=== PATIENT | female | born 1975 | race African-American/Black ===

== ENCOUNTER 2020-08-27 20:03 | Emergency (ER) | payer OTHER, SELFPAY ==
[2020-08-27 20:06] VITALS: BP 133/62; PULSE 89; RESP 22; TEMP 37.2; O2SAT 98
--- NOTE | 2020-08-27 21:22 | ED_ITS ---
HPI - Recheck/Abnormal Lab/Rx General Chief Complaint: Recheck/Abnormal Lab/Rx Stated Complaint: SEIZURE TYPE COVID SHOT THURSDAY Time Seen by Provider: 08/27/20 20:14 Source: patient Mode of arrival: Ambulatory Limitations: no limitations History of Present Illness HPI narrative: Patient is a 45-year-old female who is here for evaluation of a tremor. She states that the tremor has been there for the past several days if not week that is worsened over the past 24 hours. She is unsure as the exact cause of it. She states that it seems to be localized to her head where she feels like that her head is shaking. Earlier this year she did have a ASD closure. Afterwards she had routine labs by her primary doctor and it was found that potentially she had some thyroid issues. She has a follow-up later this week for this. Related Data Previous Rx's Medication Instructions Recorded atenolol 25 mg PO DAILY #30 tab 08/27/20 Allergies Allergy/AdvReac Type Severity Reaction Status Date / Time No Known Drug Allergies Allergy Verified 08/27/20 20:08 Review of Systems Constitutional Constitutional: Reports system reviewed and no additional complaints, except as documented Eyes Eyes: Reports system reviewed and no additional complaints, except as documented Cardiovascular Cardiovascular: Reports system reviewed and no additional complaints, except as documented Respiratory Respiratory: Reports system reviewed and no additional complaints, except as documented Gastrointestinal Gastrointestinal: Reports system reviewed and no additional complaints, except as documented Genitourinary Genitourinary: Reports system reviewed and no additional complaints, except as documented Integumentary/Breasts Skin/Breast: Reports system reviewed and no additional complaints, except as documented Neurologic Neurologic: Reports tremor(s) Psychiatric Psychiatric: Reports system reviewed and no additional complaints, except as d ocumented Hematologic/Lymphatic On Anticoagulants: No Allergic/Immunologic Allergic/Immunologic: Reports system reviewed and no additional complaints, except as documented Patient History Surgical History H/O atrial septal defect repair Social History lives independently: Yes Exam Initial Vital Signs Initial Vital Signs: Vital Signs Temperature 98.9 F 08/27/20 20:06 Pulse Rate 89 08/27/20 20:06 Respiratory Rate 22 08/27/20 20:06 Blood Pressure 133/62 08/27/20 20:06 Pulse Oximetry 98 08/27/20 20:06 Const General: cooperative and comfortable Limitations: mental status not altered HENMT Head: normal to inspection and normocephalic Ears: hearing grossly normal bilaterally Eyes General: appearance normal, both eyes and all related structures Eyelids: eyelids normal Conjunctivae: conjunctivae normal Other: No proptosis Resp Effort & Inspection: normal respiratory effort Auscultation: clear to auscultation bilaterally Cardio Rate: regular rate Rhythm: regular rhythm Skin Lesions: no lesions Rashes: no rashes Neuro General: patient alert, patient awake and moves all extremities Cognition: normal cognition Speech: speech normal Motor: muscle tone normal throughout Sensory Exam: no sensory deficits noted Other: Patient does not have a tremor with holding her arms out. She does not have a tremor with her legs. She does have a slight tremor that seems to wax and wane of her head. Extrem General: capillary refill normal Psych Appearance: grossly normal and well kempt Scores GCS Me[place] coma scale eye opening: Spontaneous Me[place] coma scale verbal response: Orientated [place] coma scale motor response: Obey commands [place] coma scale total score: 15 Course Orders Ordered: ED Orders 08/27/20 21:25 Complete Blood Count AUTO DIFF Stat Comprehensive Metabolic Panel Stat Free T3, Triiodothyronine Free Stat Lipase Stat T4 Total Thyroxine Stat Thyroid Stimulating Hormone Stat Discontinued Medications Atenolol (Atenolol 25 Mg Tablet) 25 mg PO NOW ONE Stop: 08/27/20 22:29 Last Admin: 08/27/20 22:45 Dose: 25 mg Documented by: MIROSLAVA Vital Signs Vital signs: Vital Signs - 8 hr 08/27/20 20:06 08/27/20 22:39 08/27/20 23:19 Temperature 98.9 F Pulse Rate 89 86 77 Respiratory Rate 22 14 14 Blood Pressure 133/62 115/58 L 115/56 L Pulse Oximetry 98 99 100 MDM - Recheck/Abnormal Lab/Rx Lab Data Attestation: I reviewed the patient's lab results. Result diagrams: 08/27/20 21:25 08/27/20 21:25 Labs: Lab Results 08/27/20 08/27/20 08/27/20 Range/Units 21:25 21:25 21:25 WBC 4.1 L (4.5-11.0) X10^3/uL RBC 4.70 (4.0-5.2) X10^6/uL Hgb 13.9 (12.0-16.0) g/dL Hct 40.9 (36-46) % MCV 86.9 (80-100) fL MCH 29.5 (26-34) PG MCHC 33.9 (30-36) % RDW 12.2 (11.6-14.8) % Plt Count 333 (150-400) X10^3/uL Neut % (Auto) 29.3 L (50-75) % Lymph % (Auto) 51.2 H (25-40) % [place] % (Auto) 15.3 H (3-14) % Eos % (Auto) 4.0 (2-4) % Baso % (Auto) 0.2 (0-2) % Neut # (Auto) 1200 L (1289-8971) /uL Lymph # (Auto) 2100 (9933-4902) /uL [place] # (Auto) 600 (0-900) /uL Eos # (Auto) 200 (0-450) /uL Baso # (Auto) 0 (0-100) /uL Sodium 137 (137-145) mmol/L Potassium 3.3 L (3.4-5.1) mmol/L Chloride 102 (98-107) mmol/L Carbon Dioxide 26 (22-32) mmol/L BUN 12 (7-17) mg/dL Creatinine 0.62 (0.52-1.04) mg/dL Estimated GFR > 60.0 (>60) mL/min BUN/Creatinine Ratio 19.4 (6-22) Glucose 98 (70-100) mg/dL Calcium 9.9 (8.4-10.2) mg/dL Total Bilirubin 0.2 (0.2-1.3) mg/dL AST 36 (14-36) IU/L ALT 31 (<35) IU/L Alkaline Phosphatase 113 (38-126) U/L Total Protein 8.7 H (6.3-8.2) g/dL Albumin 4.4 (3.5-5.0) g/dL Globulin 4.3 H (1.7-4.1) g/dL Albumin/Globulin Ratio 1.0 (1.0-2.8) Lipase 128 (23-300) U/L TSH < 0.015 L (0.47-4.68) uIU/mL Thyroxine (T4) 19.40 H (5.5-11.0) ug/dL Free T3 14.50 H (2.77-5.27) pg/mL MDM Narrative Medical decision making narrative: Patient's labs are consistent with hyperthyroidism. This is consistent with her prior labs per her report and she does have a follow-up later this week with her primary doctor regarding this. She does have a slight tremor that seems to wax and wane that seems to be isolated to her head. She has stated that she occasionally has episodes where her heart is beating fast and she also feels like her hair is falling out and this is fairly recently. Patient is not tachycardic nor hypertensive here. She has not had any weight loss. I have a higher suspicion that her symptoms today are caused by her hyperthyroidism. Will start the patient on atenolol. She has a follow-up later this week. I do not feel that the patient requires admitted to the hospital. Do not feel patient is in thyroid storm. She was given strict return precautions. She expressed understanding and agreement. Discharge Plan Departure Patient Disposition: Home Clinical Impression: Hyperthyroidism, Tremor Instructions: DI for Hyperthyroidism Activity Restrictions/Additional Instructions: I have a strong suspicion that your symptoms today are related to your hyperthyroidism (your thyroid working too much) recommend that you keep your appointment on Thursday. The medication you were given a prescription for today take it as directed. Return to the emergency department for any new or wor sening symptoms Prescriptions: New atenolol 25 mg tablet 25 mg PO DAILY Qty: 30 RF: 0
[2020-08-27 21:31] LABS: Add Manual Diff / Slide Review NO; Basophils Absolute Auto 0 /uL (0-100); Basophils Percent Auto 0.2 % (0-2); Eosinophils Absolute Auto 200 /uL (0-450); Hematocrit 40.9 % (36-46); Hemoglobin 13.9 g/dL (12.0-16.0); Lymphocytes Absolute Auto 2100 /uL (1100-4500); Lymphocytes Percent Auto 51.2 % (25-40); Mean Corpuscular HGB Conc 33.9 % (30-36); Mean Corpuscular Hemoglobin 29.5 PG (26-34); Mean Corpuscular Volume 86.9 fL (80-100); Monocytes Absolute Auto 600 /uL (0-900); Monocytes Percent Auto 15.3 % (3-14); Neutrophils Absolute Auto 1200 /uL (1500-7000); Neutrophils Percent Auto 29.3 % (50-75); Platelet Count 333 X10^3/uL (150-400); Red Cell Distribution Width 12.2 % (11.6-14.8); White Blood Cell Count 4.1 X10^3/uL (4.5-11.0)
[2020-08-27 21:49] LABS: Alanine Aminotransferase 31 IU/L (<35); Albumin 4.4 g/dL (3.5-5.0); Alkaline Phosphatase 113 U/L (38-126); Aspartate Aminotransferase 36 IU/L (14-36); BUN Creatinine Ratio 19.4 (6-22); Bilirubin Total 0.2 mg/dL (0.2-1.3); Blood Urea Nitrogen 12 mg/dL (7-17); Calcium 9.9 mg/dL (8.4-10.2); Carbon Dioxide 26 mmol/L (22-32); Chloride 102 mmol/L (98-107); Estimated Glomerular Filt Rate > 60.0 mL/min (>60); Globulin 4.3 g/dL (1.7-4.1); Glucose 98 mg/dL (70-100); HEMOLYSIS < 15 (0-50); Lipase 128 U/L (23-300); Potassium 3.3 mmol/L (3.4-5.1); Sodium 137 mmol/L (137-145); Total Protein 8.7 g/dL (6.3-8.2)
[2020-08-27 22:25] LABS: Thyroid Stimulating Hormone < 0.015 uIU/mL (0.47-4.68)
[2020-08-27 22:39] VITALS: BP 115/58; PULSE 86; RESP 14; O2SAT 99
[2020-08-27] MEDS: atenoloL 25 MG TABLET PO (22:45)
[2020-08-27 23:19] VITALS: BP 115/56; PULSE 77; RESP 14; O2SAT 100
== END 2020-08-27 23:21 | disposition home or self-care (01) ==
PROVIDERS: Emergency Provider Emergency Medicine
DX: E05.90 Thyrotoxicosis, unspecified without thyrotoxic crisis or storm (principal); R25.1 Tremor, unspecified
CPT/HCPCS: 36415; 80053; 83690; 84436; 84443; 84481; 85025; 99283

== ENCOUNTER 2021-06-18 17:11 | Emergency (ER) | payer OTHER, SELFPAY ==
[2021-06-18 17:35] VITALS: BP 135/60; PULSE 71; RESP 20; TEMP 36.4; O2SAT 98; BMI 27.9
[2021-06-18 18:56] LABS: Alanine Aminotransferase 17 IU/L (<35); Albumin 4.5 g/dL (3.5-5.0); Albumin Globulin Ratio 1.2 (1.0-2.8); Alkaline Phosphatase 97 U/L (38-126); Aspartate Aminotransferase 41 IU/L (14-36); BUN Creatinine Ratio 18.3 (6-22); Bilirubin Total 0.4 mg/dL (0.2-1.3); Blood Urea Nitrogen 15 mg/dL (7-17); Calcium 9.6 mg/dL (8.4-10.2); Carbon Dioxide 32 mmol/L (22-32); Chloride 101 mmol/L (98-107); Estimated Glomerular Filt Rate > 60.0 mL/min (>60); Globulin 3.9 g/dL (1.7-4.1); Glucose 105 mg/dL (70-100); HEMOLYSIS 36 (0-50); Potassium 3.6 mmol/L (3.4-5.1); Sodium 136 mmol/L (137-145); Total Protein 8.4 g/dL (6.3-8.2)
[2021-06-18 19:11] LABS: Add Manual Diff / Slide Review NO; Basophils Absolute Auto 100 /uL (0-100); Basophils Percent Auto 0.9 % (0-2); Eosinophils Absolute Auto 400 /uL (0-450); Hematocrit 39.1 % (36-46); Hemoglobin 13.2 g/dL (12.0-16.0); Lymphocytes Absolute Auto 3200 /uL (1100-4500); Lymphocytes Percent Auto 51.4 % (25-40); Mean Corpuscular HGB Conc 33.9 % (30-36); Mean Corpuscular Volume 91.4 fL (80-100); Monocytes Absolute Auto 500 /uL (0-900); Monocytes Percent Auto 7.7 % (3-14); Neutrophils Absolute Auto 2100 /uL (1500-7000); Platelet Count 369 X10^3/uL (150-400); Red Blood Cell Count 4.27 X10^6/uL (4.0-5.2); Red Cell Distribution Width 12.5 % (11.6-14.8); White Blood Cell Count 6.1 X10^3/uL (4.5-11.0)
[2021-06-18 19:27] LABS: Thyroid Stimulating Hormone < 0.015 uIU/mL (0.47-4.68)
[2021-06-18 20:23] LABS: Free T4, Direct Thyroxine 1.33 ng/dL (0.78-2.19)
[2021-06-18 20:37] VITALS: BP 136/78; PULSE 61; RESP 18; O2SAT 98
--- NOTE | 2021-06-18 20:46 | ED_ITS ---
HPI - Recheck/Abnormal Lab/Rx General Chief Complaint: Recheck/Abnormal Lab/Rx Stated Complaint: states md sent her for a thyroid test Time Seen by Provider: 06/18/21 19:30 Source: patient Mode of arrival: Ambulatory History of Present Illness HPI narrative: 46-year-old female nonsmoker with history of hypothyroid states that she has felt tremors off and on for a few days, but not currently. When present she feels like she is pulsing on the inside and states it lasts for a few minutes. She denies other symptoms such as dizziness, weakness or lightheadedness. She has no change in hot or cold tolerance. She denies any change in appetite nor nausea, vomiting or diarrhea. She denies any change in her medications, doses or pharmacy of choice. She states that she had reached out to her manager corporate responsibility to suggested she come to the emergency department for some lab work. Related Data Previous Rx's Medication Instructions Recorded atenolol 25 mg tablet 25 mg PO DAILY #30 tab 08/27/20 Allergies Allergy/AdvReac Type Severity Reaction Status Date / Time No Known Drug Allergies Allergy Verified 08/27/20 20:08 Review of Systems Review of Systems Narrative: GENERAL: See HPI HEENT: Denies sinus pain, ear pain, sore throat, difficulty swallowing, dizziness. RESPIRATORY: Denies dyspnea, cough, wheezing, hemoptysis, sputum. CARDIOVASCULAR: Denies chest pain, palpitations, orthopnea, edema, GASTROINTESTINAL: Denies nausea, vomiting, abdominal pain, diarrhea, constipation, melena. : Denies dysuria, frequency, incontinence, hematuria, urinary retention. MUSCULOSKELETAL: denies weakness, joint pain, or bony pain SKIN: Denies rash, skin lesions, or other NEUROLOGIC: See HP PSYCHIATRIC: No concerning psychosocial issues. 12 point review of systems is negative except for those stated above Patient History Surgical History H/O atrial septal defect repair Social History lives independently: Yes Smoking Status: Never smoker Smoking Status: Never smoker alcohol intake frequency: holidays/special occasions only Substance Use Type: does not use Exam Narrative Exam Narrative: GENERAL: [46] year old patient appears stated age. Well-developed patient, in mild distress. HEAD: Atraumatic. Normocephalic. EYES: Pupils equal round and reactive. Extraocular motions intact. No scleral icterus. No injection or drainage. ENT: Nose without bleeding, purulent drainage. Throat without erythema, tonsillar hypertrophy or exudate. Airway patent. NECK: Trachea midline. Non tender CARDIOVASCULAR: Regular rate and rhythm without murmurs, gallops, or rubs. RESPIRATORY: Clear to auscultation. Breath sounds equal bilaterally. No wheezes, rales, or rhonchi. GASTROINTESTINAL: Abdomen soft, non-tender, nondistended. EXTREMITIES: No edema or joint tenderness. BACK: Nontender without deformity or crepitance. No flank tenderness. NEURO: AOx3. SKIN: No rash or erythema of visible areas Initial Vital Signs Initial Vital Signs: Vital Signs Temperature 97.6 F 06/18/21 17:35 Pulse Rate 71 06/18/21 17:35 Respiratory Rate 20 06/18/21 17:35 Blood Pressure 135/60 06/18/21 17:35 Pulse Oximetry 98 06/18/21 17:35 Course Orders Ordered: ED Orders 06/18/21 18:11 Complete Blood Count AUTO DIFF Stat Comprehensive Metabolic Panel Stat Free T4, Direct Thyroxine Stat TSH [Thyroid Stimulating Hormone] Stat Vital Signs Vital signs: Vital Signs - 8 hr 06/18/21 20:37 06/18/21 21:00 06/18/21 21:01 Pulse Rate 61 66 61 Respiratory Rate 18 Blood Pressure 136/78 122/58 L Pulse Oximetry 98 100 99 06/18/21 21:30 Pulse Rate 59 L Respiratory Rate Blood Pressure 125/61 Pulse Oximetry 100 MDM - Recheck/Abnormal Lab/Rx Lab Data Result diagrams: 06/18/21 18:11 06/18/21 18:11 Labs: Lab Results 06/18/21 06/18/21 06/18/21 Range/Units 18:11 18:11 18:11 WBC 6.1 (4.5-11.0) X10^3/uL RBC 4.27 (4.0-5.2) X10^6/uL Hgb 13.2 (12.0-16.0) g/dL Hct 39.1 (36-46) % MCV 91.4 (80-100) fL MCH 31.0 (26-34) PG MCHC 33.9 (30-36) % RDW 12.5 (11.6-14.8) % Plt Count 369 (150-400) X10^3/uL Neut % (Auto) 34.0 L (50-75) % Lymph % (Auto) 51.4 H (25-40) % [place] % (Auto) 7.7 (3-14) % Eos % (Auto) 6.0 H (2-4) % Baso % (Auto) 0.9 (0-2) % Neut # (Auto) 2100 (3369-5280) /uL Lymph # (Auto) 3200 (9188-5430) /uL [place] # (Auto) 500 (0-900) /uL Eos # (Auto) 400 (0-450) /uL Baso # (Auto) 100 (0-100) /uL Sodium 136 L (137-145) mmol/L Potassium 3.6 (3.4-5.1) mmol/L Chloride 101 (98-107) mmol/L Carbon Dioxide 32 (22-32) mmol/L BUN 15 (7-17) mg/dL Creatinine 0.82 (0.52-1.04) mg/dL Estimated GFR > 60.0 (>60) mL/min BUN/Creatinine Ratio 18.3 (6-22) Glucose 105 H (70-100) mg/dL Calcium 9.6 (8.4-10.2) mg/dL Total Bilirubin 0.4 (0.2-1.3) mg/dL AST 41 H (14-36) IU/L ALT 17 (<35) IU/L Alkaline Phosphatase 97 (38-126) U/L Total Protein 8.4 H (6.3-8.2) g/dL Albumin 4.5 (3.5-5.0) g/dL Globulin 3.9 (1.7-4.1) g/dL Albumin/Globulin Ratio 1.2 (1.0-2.8) TSH < 0.015 L (0.47-4.68) uIU/mL Free T4 (0.78-2.19) ng/dL 06/18/21 Range/Units 18:11 WBC (4.5-11.0) X10^3/uL RBC (4.0-5.2) X10^6/uL Hgb (12.0-16.0) g/dL Hct (36-46) % MCV (80-100) fL MCH (26-34) PG MCHC (30-36) % RDW (11.6-14.8) % Plt Count (150-400) X10^3/uL Neut % (Auto) (50-75) % Lymph % (Auto) (25-40) % [place] % (Auto) (3-14) % Eos % (Auto) (2-4) % Baso % (Auto) (0-2) % Neut # (Auto) (3893-4337) /uL Lymph # (Auto) (6347-9465) /uL [place] # (Auto) (0-900) /uL Eos # (Auto) (0-450) /uL Baso # (Auto) (0-100) /uL Sodium (137-145) mmol/L Potassium (3.4-5.1) mmol/L Chloride (98-107) mmol/L Carbon Dioxide (22-32) mmol/L BUN (7-17) mg/dL Creatinine (0.52-1.04) mg/dL Estimated GFR (>60) mL/min BUN/Creatinine Ratio (6-22) Glucose (70-100) mg/dL Calcium (8.4-10.2) mg/dL Total Bilirubin (0.2-1.3) mg/dL AST (14-36) IU/L ALT (<35) IU/L Alkaline Phosphatase (38-126) U/L Total Protein (6.3-8.2) g/dL Albumin (3.5-5.0) g/dL Globulin (1.7-4.1) g/dL Albumin/Globulin Ratio (1.0-2.8) TSH (0.47-4.68) uIU/mL Free T4 1.33 (0.78-2.19) ng/dL MDM Narrative Medical decision making narrative: Patient with reassuring history and physical. Her labs are largely unremarkable except for low TSH in the setting of a normal free T4. She is currently asymptomatic and no evidence of any significant underlying diagnosis at this time. Return precautions given and questions answered to her apparent satisfaction Discharge Plan Departure Patient Disposition: Home Clinical Impression: Feared complaint without diagnosis Instructions: DI for Hypothyroidism Activity Restrictions/Additional Instructions: *You have been diagnosed with [episodic tremors with very reassuring physical exam and labs. There is no indication of significant abnormality in your circulating thyroid hormone. Also, as we discussed, your other labs are also very reassuring and there is no evidence of a significant electrolyte abnormality, kidney condition, infection, anemia or other diagnosis that would require a specific and immediate intervention *What to do: *Please continue to take your regular medications as directed. [ ] New medication prescriptions sent to your pharmacy: [ ] [ ] New medication written as a paper prescription [x ] No new medications given *Please follow up with your primary Client Analyst in 2-3 days, call for an appointment. Let them know you were seen in the Emergency Department and that we ask that you be seen in follow up. *Return to Emergency Department if you should have any new, worsening or concerning symptoms, such as [fever greater than 101 F, shaking chills, worsening pain, persistent vomiting or other bothersome symptoms] Prescriptions: No Action atenolol 25 mg tablet 25 mg PO DAILY Qty: 30 0RF
[2021-06-18 21:00] VITALS: PULSE 66; O2SAT 100
[2021-06-18 21:01] VITALS: BP 122/58; PULSE 61; O2SAT 99
[2021-06-18 21:30] VITALS: BP 125/61; PULSE 59; O2SAT 100
== END 2021-06-18 21:54 | disposition home or self-care (01) ==
PROVIDERS: Emergency Provider Emergency Medicine
DX: Z71.1 Person with feared health complaint in whom no diagnosis is made (principal)
CPT/HCPCS: 36415; 80053; 84439; 84443; 85025; 99283

== ENCOUNTER 2022-08-25 16:52 | Emergency (ER) | payer OTHER, SELFPAY ==
[2022-08-25 16:59] VITALS: BP 124/59; PULSE 80; RESP 18; TEMP 36.4; O2SAT 99; BMI 29.7
--- NOTE | 2022-08-25 17:07 | DI.RAD.S_ITS ---
PROCEDURE: XR CHEST 1V INDICATIONS: chest pain TECHNIQUE: One view of the chest was acquired. COMPARISON: None. FINDINGS: Surgical changes and devices: Small surgical clips are noted in epigastric region. Lungs and pleura: Lungs are clear. No pleural effusions or pneumothorax. Mediastinum: Mediastinal contours appear normal. Heart size is normal. Bones and chest wall: No suspicious bony lesions. Overlying soft tissues appear unremarkable. IMPRESSION: No acute cardiopulmonary pathology. Dictated by: Dwight Cloud M.D. on 08/25/2022 at 16:40 Approved by: Dwight Cloud M.D. on 08/25/2022 at 16:40
[2022-08-25 17:37] LABS: Add Manual Diff / Slide Review NO; Basophils Absolute Auto 0 /uL (0-100); Eosinophils Absolute Auto 200 /uL (0-450); Eosinophils Percent Auto 3.5 % (2-4); Hematocrit 35.7 % (36-46); Hemoglobin 12.4 g/dL (12.0-16.0); Lymphocytes Absolute Auto 2400 /uL (1100-4500); Lymphocytes Percent Auto 54.8 % (25-40); Mean Corpuscular HGB Conc 34.6 % (30-36); Mean Corpuscular Hemoglobin 30.4 PG (26-34); Mean Corpuscular Volume 87.9 fL (80-100); Monocytes Absolute Auto 300 /uL (0-900); Monocytes Percent Auto 7.4 % (3-14); Neutrophils Absolute Auto 1500 /uL (1500-7000); Neutrophils Percent Auto 33.3 % (50-75); Platelet Count 338 X10^3/uL (150-400); Red Blood Cell Count 4.06 X10^6/uL (4.0-5.2); Red Cell Distribution Width 12.9 % (11.6-14.8); White Blood Cell Count 4.4 X10^3/uL (4.5-11.0)
[2022-08-25 17:41] LABS: INR 1.1 (0.9-1.3); Prothrombin Time 12.5 SECONDS (10.1-12.7)
[2022-08-25 17:44] LABS: PTT Partial Thromboplastin Tim 31 SECONDS (26-36)
[2022-08-25 17:46] LABS: Alanine Aminotransferase 33 IU/L (<35); Albumin 4.2 g/dL (3.5-5.0); Albumin Globulin Ratio 1.2 (1.0-2.8); Alkaline Phosphatase 90 U/L (38-126); Aspartate Aminotransferase 32 IU/L (14-36); BUN Creatinine Ratio 13.6 (6-22); Bilirubin Total 0.4 mg/dL (0.2-1.3); Blood Urea Nitrogen 12 mg/dL (7-17); Calcium 8.3 mg/dL (8.4-10.2); Carbon Dioxide 28 mmol/L (22-32); Chloride 101 mmol/L (98-107); Creatine Kinase 163 U/L (30-135); Estimated Glomerular Filt Rate > 60 mL/min (>60); Globulin 3.6 g/dL (1.7-4.1); Glucose 132 mg/dL (70-100); HEMOLYSIS 18 (0-50); Lipase 184 U/L (23-300); Magnesium 2.3 mg/dL (1.6-2.3); Potassium 3.1 mmol/L (3.4-5.1); Sodium 137 mmol/L (137-145); Total Protein 7.8 g/dL (6.3-8.2)
[2022-08-25 17:56] LABS: Troponin I < 0.012 ng/mL (0.01-0.034)
[2022-08-25 18:01] LABS: CKMB % Relative Index 0.1 % (1.5-5.0); Creatine Kinase MB < 0.22 ng/mL (<2.37)
[2022-08-25 18:54] LABS: Procalcitonin 0.03 ng/mL (<0.5)
[2022-08-25 19:56] VITALS: PULSE 66; RESP 18; O2SAT 100
[2022-08-25 19:58] VITALS: BP 121/58; PULSE 64; RESP 15; O2SAT 98
--- NOTE | 2022-08-25 19:58 | ED.GENADULT ---
HPI - General Adult General Chief complaint: Shortness of Breath/Dyspnea Stated complaint: difficulty breathing Time Seen by Provider: 08/25/22 18:22 Source: patient Mode of arrival: Ambulatory History of Present Illness HPI narrative: 47-year-old female nonsmoker presents with shortness of breath and cough without sputum. She states that she is been feeling under the weather since Thursday, has had fever and chills as well as shortness of breath. She has had some nasal congestion, sore throat, laryngitis. She is had no fever or chills since or Thursday. She is had some mild nausea but denies any vomiting or diarrhea. She denies known exposure to other ill persons. She denies recent travel, history of cancer, prior blood clot. She denies any lower extremity pain, swelling or redness. She has been taking some antihistamines that seemed to help some Related Data Previous Rx's Medication Instructions Recorded atenolol 25 mg tablet 25 mg PO DAILY #30 tabs 08/27/20 benzonatate 200 mg capsule 200 mg PO BID PRN cough #20 caps 08/25/22 ondansetron 4 mg disintegrating 4 mg PO TID-QID PRN nausea and 08/25/22 tablet vomiting #10 tabs Allergies Allergy/AdvReac Type Severity Reaction Status Date / Time No Known Drug Allergies Allergy Verified 08/27/20 20:08 Review of Systems Review of Systems Narrative: GENERAL: See HPI HEENT: See HPI RESPIRATORY: See HPI CARDIOVASCULAR: Denies chest pain, palpitations, orthopnea, edema, GASTROINTESTINAL: See HPI : Denies dysuria, frequency, incontinence, hematuria, urinary retention. MUSCULOSKELETAL: denies weakness, joint pain, or bony pain SKIN: Denies rash, skin lesions, or other NEUROLOGIC: Denies weakness, headache, numbness, change in speech, confusion, seizures, incoordination. PSYCHIATRIC: No concerning psychosocial issues. 12 point review of systems is negative except for those stated above Patient History Surgical History H/O atrial septal defect repair Social History lives independently: Yes Smoking Status: Never smoker Smoking Status: Never smoker alcohol intake frequency: holidays/special occasions only Substance Use Type: does not use Exam Narrative Exam Narrative: GENERAL: [47] year old patient appears stated age. Well-developed patient, in mild distress. HEAD: Atraumatic. Normocephalic. EYES: Pupils equal round and reactive. Extraocular motions intact. No scleral icterus. No injection or drainage. ENT: Nose without bleeding, purulent drainage. Throat without erythema, tonsillar hypertrophy or exudate, no evidence of abscess. Clear postnasal drainage Airway patent. NECK: Trachea midline. Non tender CARDIOVASCULAR: Regular rate and rhythm without murmurs, gallops, or rubs. RESPIRATORY: Clear to auscultation. Breath sounds equal bilaterally. No wheezes, rales, or rhonchi. No bronchospastic cough, no increased work of breathing GASTROINTESTINAL: Abdomen soft, non-tender, nondistended. EXTREMITIES: No edema or joint tenderness. BACK: Nontender without deformity or crepitance. No flank tenderness. NEURO: AOx3. SKIN: No rash or erythema of visible areas Initial Vital Signs Initial Vital Signs: Vital Signs Temperature 97.6 F 08/25/22 16:59 Pulse Rate 80 08/25/22 16:59 Respiratory Rate 18 08/25/22 16:59 Blood Pressure 124/59 L 08/25/22 16:59 Pulse Oximetry 99 08/25/22 16:59 Oxygen Delivery Method Room Air 08/25/22 16:59 Scores PERC Score Age greater than or equal to 50 years: No Heart rate greater than or equal to 100 bpm: No Room Air O2 Sat less than 95%: No Unilateral leg swelling: No Recent trauma or surgery: No Hemoptysis: No Prior PE or DVT: No Hormone Use: No Total PERC Score: 0 Wells' Criteria for PE Clinical signs and symptoms of DVT: No PE is #1 Dx or equally likely: No Heart rate > 100: No Immobilization at least 3 days or surg in previous 4 weeks: No History of PE or DVT: No Hemoptysis: No Malignancy w/Treatment within 6 months or palliative: No Wells' PE Score total: 0 Course Orders Ordered: ED Orders 08/25/22 20:11 Respiratory Panel (Film Array) Stat Discontinued Medications Aspirin (Aspirin 81 Mg Chew Tab) 324 mg PO NOW ONE Stop: 08/25/22 17:08 Last Admin: 08/25/22 20:12 Dose: 324 mg Documented By: Vital Signs Vital signs: Vital Signs - 8 hr 08/25/22 20:32 08/25/22 19:56 08/25/22 19:58 Temperature 98 F Pulse Rate 74 66 64 Respiratory Rate 18 18 15 Blood Pressure 128/76 Pulse Oximetry 97 100 98 Oxygen Delivery Method Room Air 08/25/22 19:58 08/25/22 20:00 08/25/22 20:01 Temperature Pulse Rate 64 73 Respiratory Rate 24 43 H Blood Pressure 121/58 L Pulse Oximetry 98 97 Oxygen Delivery Method 08/25/22 20:01 Temperature Pulse Rate Respiratory Rate Blood Pressure 121/63 Pulse Oximetry Oxygen Delivery Method Medical Decision Making Lab Data 08/25/22 16:25 08/25/22 16:25 Labs: Lab Results 08/25/22 08/25/22 08/25/22 Range/Units 16:25 16:25 16:25 WBC 4.4 L (4.5-11.0) X10^3/uL RBC 4.06 (4.0-5.2) X10^6/uL Hgb 12.4 (12.0-16.0) g/dL Hct 35.7 L (36-46) % MCV 87.9 (80-100) fL MCH 30.4 (26-34) PG MCHC 34.6 (30-36) % RDW 12.9 (11.6-14.8) % Plt Count 338 (150-400) X10^3/uL Neut % (Auto) 33.3 L (50-75) % Lymph % (Auto) 54.8 H (25-40) % Gonzales % (Auto) 7.4 (3-14) % Eos % (Auto) 3.5 (2-4) % Baso % (Auto) 1.0 (0-2) % Neut # (Auto) 1500 (3277-7610) /uL Lymph # (Auto) 2400 (0841-9105) /uL Gonzales # (Auto) 300 (0-900) /uL Eos # (Auto) 200 (0-450) /uL Baso # (Auto) 0 (0-100) /uL PT 12.5 (10.1-12.7) SECONDS INR 1.1 (0.9-1.3) APTT 31 (26-36) SECONDS Sodium 137 (137-145) mmol/L Potassium 3.1 L (3.4-5.1) mmol/L Chloride 101 (98-107) mmol/L Carbon Dioxide 28 (22-32) mmol/L BUN 12 (7-17) mg/dL Creatinine 0.88 (0.52-1.04) mg/dL Estimated GFR > 60 (>60) mL/min BUN/Creatinine Ratio 13.6 (6-22) Glucose 132 H (70-100) mg/dL Calcium 8.3 L (8.4-10.2) mg/dL Magnesium 2.3 (1.6-2.3) mg/dL Total Bilirubin 0.4 (0.2-1.3) mg/dL AST 32 (14-36) IU/L ALT 33 (<35) IU/L Alkaline Phosphatase 90 (38-126) U/L Total Creatine Kinase 163 H (30-135) U/L CK-MB (CK-2) < 0.22 (<2.37) ng/mL CK-MB (CK-2) Rel Index 0.1 L (1.5-5.0) % Troponin I < 0.012 (0.01-0.034) ng/mL Total Protein 7.8 (6.3-8.2) g/dL Albumin 4.2 (3.5-5.0) g/dL Globulin 3.6 (1.7-4.1) g/dL Albumin/Globulin Ratio 1.2 (1.0-2.8) Lipase 184 (23-300) U/L Procalcitonin (<0.5) ng/mL Chlamy pneumoniae PCR (Not Detect) Adenovirus (PCR) (Not Detect) B. pertussis DNA (PCR) (Not Detecte) B.parapertussis DNA PCR (Not Detecte) Coronavirus OC43 (PCR) (Not Detect) Coronavirus HKU1 (PCR) (Not Detect) Coronavirus 229E (PCR) (Not Detect) SARS-CoV-2 (PCR) (Not Detecte) Coronavirus NL63 (PCR) (Not Detect) Human Metapneumovir PCR (Not Detect) Influenza Type A (PCR) (Not Detect) Influenza Type B (PCR) (Not Detect) M. pneumoniae (PCR) (Not Detect) Parainfluenza 1 (PCR) (Not Detect) Parainfluenza 2 (PCR) (Not Detect) Parainfluenza 3 (PCR) (Not Detect) Parainfluenza 4 (PCR) (Not Detect) RSV (PCR) (Not Detect) Entero/Rhino (PCR) (Not Detect) 08/25/22 08/25/22 Range/Units 16:25 20:11 WBC (4.5-11.0) X10^3/uL RBC (4.0-5.2) X10^6/uL Hgb (12.0-16.0) g/dL Hct (36-46) % MCV (80-100) fL MCH (26-34) PG MCHC (30-36) % RDW (11.6-14.8) % Plt Count (150-400) X10^3/uL Neut % (Auto) (50-75) % Lymph % (Auto) (25-40) % Gonzales % (Auto) (3-14) % Eos % (Auto) (2-4) % Baso % (Auto) (0-2) % Neut # (Auto) (0141-7205) /uL Lymph # (Auto) (6897-1056) /uL Gonzales # (Auto) (0-900) /uL Eos # (Auto) (0-450) /uL Baso # (Auto) (0-100) /uL PT (10.1-12.7) SECONDS INR (0.9-1.3) APTT (26-36) SECONDS Sodium (137-145) mmol/L Potassium (3.4-5.1) mmol/L Chloride (98-107) mmol/L Carbon Dioxide (22-32) mmol/L BUN (7-17) mg/dL Creatinine (0.52-1.04) mg/dL Estimated GFR (>60) mL/min BUN/Creatinine Ratio (6-22) Glucose (70-100) mg/dL Calcium (8.4-10.2) mg/dL Magnesium (1.6-2.3) mg/dL Total Bilirubin (0.2-1.3) mg/dL AST (14-36) IU/L ALT (<35) IU/L Alkaline Phosphatase (38-126) U/L Total Creatine Kinase (30-135) U/L CK-MB (CK-2) (<2.37) ng/mL CK-MB (CK-2) Rel Index (1.5-5.0) % Troponin I (0.01-0.034) ng/mL Total Protein (6.3-8.2) g/dL Albumin (3.5-5.0) g/dL Globulin (1.7-4.1) g/dL Albumin/Globulin Ratio (1.0-2.8) Lipase (23-300) U/L Procalcitonin 0.03 (<0.5) ng/mL Chlamy pneumoniae PCR Not detected (Not Detect) Adenovirus (PCR) Not detected (Not Detect) B. pertussis DNA (PCR) Not detected (Not Detecte) B.parapertussis DNA PCR Not detected (Not Detecte) Coronavirus OC43 (PCR) Not detected (Not Detect) Coronavirus HKU1 (PCR) Not detected (Not Detect) Coronavirus 229E (PCR) Not detected (Not Detect) SARS-CoV-2 (PCR) Detected H (Not Detecte) Coronavirus NL63 (PCR) Not detected (Not Detect) Human Metapneumovir PCR Not detected (Not Detect) Influenza Type A (PCR) Not detected (Not Detect) Influenza Type B (PCR) Not detected (Not Detect) M. pneumoniae (PCR) Not detected (Not Detect) Parainfluenza 1 (PCR) Not detected (Not Detect) Parainfluenza 2 (PCR) Not detected (Not Detect) Parainfluenza 3 (PCR) Not detected (Not Detect) Parainfluenza 4 (PCR) Not detected (Not Detect) RSV (PCR) Not detected (Not Detect) Entero/Rhino (PCR) Not detected (Not Detect) MDM Narrative Medical decision making narrative: CC: 47-year-old female nonsmoker with multiple upper respiratory complaints Complicating co-morbidities: Meniere's disease Data collected from: Patient Medical records reviewed: Prior notes reviewed in our EMR Differential considered, but not limited to: Viral upper respiratory infection, atypical pneumonia, pneumonia, pulmonary embolism versus other Exam documented above, pertinent findings include: Nasal drainage, clear postnasal drip, no increased work of breathing, no wheezing, rales or rhonchi, no increased work of breathing, no hypoxemia Lab Test results independently reviewed as above. Pertinent findings: No leukocytosis or left shift, procalcitonin negative. Respiratory panel notes COVID Independently reviewed EKG as above Imaging studies independently reviewed: No acute cardiopulmonary findings Scores Used: Wells, PERC - no need to order DDImer to pursue PE Treatments: ASA Re-evaluations: Patient without any significant respiratory distress Discussion: Patient with upper respiratory symptoms and subjective fever for the past 4-5 days has no signs of respiratory distress, no hypoxemia or use of accessory muscles. Chest x-ray is negative for any focal infiltrate, respiratory panel positive for COVID. She is not a candidate for Paxlovid. No indication for hospitalization. PE considered but thought unlikely given her Wells and PERC scores as noted above. Patient and I had extensive discussion about symptomatic treatment and indications for return including worsening trouble breathing, persistent vomiting or other bothersome symptoms Disposition: see below, along with detailed discharge instructions that have been reviewed with patient as well as indications for ED re-evaluation and additional outpatient follow up Discharge Plan Departure Patient Disposition: Home Clinical Impression: Upper respiratory virus, COVID-19 Instructions: DI for Viral Upper Respiratory Infection -- Adult Activity Restrictions/Additional Instructions: *You have been diagnosed with [various symptoms due to viral upper respiratory infection] *What to do: *Please consider the use of ijll-hud-[id number] antihistamines such as cetirizine syrup which can dry the secretions that are causing many of these symptoms. Two prescriptions were sent to [facility] for you * your history and physical exam are very reassuring and there is no indication that the symptoms are due to a bacterial infection, therefore there is no indication for antibiotics. *Please follow up with your primary care provider in 2-3 days, call for an appointment. Let them know you were seen in the Emergency Department and that we ask that you be seen in follow up. We will electronically transmit a record of today's note if your PCP is in our system *If you do not have a primary care provider please contact the [facility] Resource line at [phone]. They will ask some questions about your medical history and help get you set up with a doctor in the community. *Return to Emergency Department if you should have any new, worsening or concerning symptoms increased work of breathing with flaring of nostrils, using belly to breathe, persistent vomiting, or other bothersome symptoms *You have been diagnosed with [ COVID-19] *What to do: ?* per recommendations from the CDC and the [facility] Department of Health ?* stay home except to get medical care. ?Restrict activities outside your home, except for getting medical care. ?Do not go to work, school, or public areas. ?Avoid using public transportation, ride sharing, or taxis. ?* separate yourself from other people in your home. ?* call ahead before visiting your doctor ?* Wear a facemask ?* Cover your coughs and sneezes ?* Clean your hands often ?* Avoid sharing household items ?* Clean all high-touch services every day ?* Monitor your symptoms and seek prompt medical attention if your illness is worsening, particularly with difficulty in breathing. You may discontinue your isolation when: ?1. You have been fever-free for at least 24 hours without the use of fever reducing medication, AND ?2. Your symptoms are getting better, AND ?3. At least 5 days have passed since symptoms first appeared ?4. If you have fever, continue to stay home until fever resolves Individuals with laboratory confirmed COVID-19 who have not had any symptoms may discontinue home isolation when at least 5 days have passed since the date of their first COVID-19 diagnostic test and have had no subsequent illness You should notifiy any friends and family that have been in close contact *If up to date on COVID Vaccines, then they do not need to quarantine unless symptoms develop. Get tested on day 5 (or sooner if symptoms develop). Take precautions and watch for symptoms until day 10 *If NOT up to date on COVID Vaccines, then CDC recommends quarantine for at least 5 full days. Wear a well fitted mask at home if you must be around others. If they ?develop symptoms they should get tested. If they remain asymptomatic they should get tested on day 5. They should take precautions and monitor for symptoms until day 10. Prescriptions: New ondansetron 4 mg tablet,disintegrating 4 mg PO TID-QID PRN (Reason: nausea and vomiting) Qty: 10 0RF benzonatate 200 mg capsule 200 mg PO BID PRN (Reason: cough) Qty: 20 0RF No Action atenolol 25 mg tablet 25 mg PO DAILY Qty: 30 0RF Stand Alone Forms: Patient Portal/API
[2022-08-25 20:00] VITALS: PULSE 64; RESP 24; O2SAT 98
[2022-08-25 20:01] VITALS: BP 121/63; PULSE 73; RESP 43; O2SAT 97
[2022-08-25] MEDS: ASPIRIN 81 MG CHEW TAB 324 MG PO (20:12)
[2022-08-25 20:32] VITALS: BP 128/76; PULSE 74; RESP 18; TEMP 36.6; O2SAT 97
[2022-08-25 22:19] LABS: Adenovirus Not Detected (Not Detect); B. parapertussis Not Detected (Not Detecte); Bordetella pertussis Not Detected (Not Detecte); Chlamydophila pneumoniae Not Detected (Not Detect); Coronavirus 229E Not Detected (Not Detect); Coronavirus HKU1 Not Detected (Not Detect); Coronavirus NL 63 Not Detected (Not Detect); Coronavirus OC43 Not Detected (Not Detect); Human Metapneumovirus Not Detected (Not Detect); Human Rhinovirus/Enterovirus Not Detected (Not Detect); Influenza A Not Detected (Not Detect); Influenza B Not Detected (Not Detect); Mycoplasma pneumoniae Not Detected (Not Detect); Parainfluenza Virus 1 Not Detected (Not Detect); Parainfluenza Virus 2 Not Detected (Not Detect); Parainfluenza Virus 3 Not Detected (Not Detect); Parainfluenza Virus 4 Not Detected (Not Detect); Respiratory Syncytial Virus Not Detected (Not Detect); SARS- CoV-2 Detected (Not Detecte)
== END 2022-08-25 20:33 | disposition home or self-care (01) ==
PROVIDERS: Emergency Medicine; Emergency Provider Emergency Medicine
DX: U07.1 COVID-19 (principal); R07.9 Chest pain, unspecified
CPT/HCPCS: 36415; 71045; 80053; 82550; 82553; 83690; 83735; 84145; 84484; 85025; 85610; 85730; 87633; 93005; 99284

== ENCOUNTER 2023-05-29 17:57 | Emergency (ER) | payer OTHER, SELFPAY ==
[2023-05-29 18:08] VITALS: BP 125/58; PULSE 81; RESP 20; TEMP 36.6; O2SAT 99; BMI 30.1
[2023-05-29 19:00] LABS: Strep Grp A by PCR Rapid Negative (Negative)
[2023-05-29 19:41] LABS: Adenovirus Not Detected (Not Detect); B. parapertussis Not Detected (Not Detecte); Bordetella pertussis Not Detected (Not Detect); Chlamydophila pneumoniae Not Detected (Not Detect); Coronavirus 229E Not Detected (Not Detect); Coronavirus HKU1 Not Detected (Not Detect); Coronavirus NL 63 Not Detected (Not Detect); Coronavirus OC43 Not Detected (Not Detect); Human Metapneumovirus Not Detected (Not Detect); Human Rhinovirus/Enterovirus Not Detected (Not Detect); Influenza A Not Detected (Not Detect); Influenza B Not Detected (Not Detect); Mycoplasma pneumoniae Not Detected (Not Detect); Parainfluenza Virus 1 Not Detected (Not Detect); Parainfluenza Virus 2 Not Detected (Not Detect); Parainfluenza Virus 3 Not Detected (Not Detect); Parainfluenza Virus 4 Not Detected (Not Detect); Respiratory Syncytial Virus Detected (Not Detect); SARS- CoV-2 Not Detected (Not Detecte)
[2023-05-29 19:52] VITALS: BP 132/62; PULSE 81; O2SAT 99
[2023-05-29 20:00] VITALS: BP 121/59; PULSE 73; O2SAT 99
--- NOTE | 2023-05-29 20:24 | ED.GENADULT ---
HPI - General Adult General Chief complaint: Upper Respiratory Symptoms Stated complaint: coughing, sore throat hard to swallow, chest px Time Seen by Provider: 05/29/23 19:59 Source: patient Mode of arrival: Ambulatory History of Present Illness HPI narrative: 48-year-old woman with a history hypertension began noting upper respiratory symptoms consisting of slight cough, sore throat pleuritic type chest pain on the . Symptoms have worsened and now include mild headache and rhinorrhea. No significant dyspnea and no significant wheezing. She has not been having nausea, vomiting, diarrhea, palpitations, abdominal pain, dysuria. Related Data Previous Rx's Medication Instructions Recorded atenolol 25 mg tablet 25 mg PO DAILY #30 tabs 08/27/20 benzonatate 200 mg capsule 200 mg PO BID PRN cough #20 caps 08/25/22 ondansetron 4 mg disintegrating 4 mg PO TID-QID PRN nausea and 08/25/22 tablet vomiting #10 tabs Allergies Allergy/AdvReac Type Severity Reaction Status Date / Time No Known Drug Allergies Allergy Verified 05/29/23 18:13 Review of Systems Review of Systems Narrative: Pertinent positive and negative findings as per HPI Patient History Medical History (Updated 05/29/23 @ 20:32 by Adrienne Castro MD) Hypertension Surgical History H/O atrial septal defect repair Social History lives independently: Yes Smoking Status: Never smoker Smoking Status: Never smoker alcohol intake frequency: holidays/special occasions only Substance Use Type: does not use Exam Initial Vital Signs Initial Vital Signs: Vital Signs Temperature 97.8 F 05/29/23 18:08 Pulse Rate 81 05/29/23 18:08 Respiratory Rate 20 05/29/23 18:08 Blood Pressure 125/58 L 05/29/23 18:08 Pulse Oximetry 99 05/29/23 18:08 Oxygen Delivery Method Room Air 05/29/23 18:08 General: Healthy appearing, with nasal congestion, hoarse voice, mild cough but no acute respiratory distress. Able to cooperate completely with history and physical HEENT: Moist mucous membranes, normal sclera with reactive pupils, Respiratory: Lungs are clear to auscultation, no wheezing no rales no rhonchi. Full and symmetrical air movement, dry coughing is appreciated during exam Cardiac: Regular rate and rhythm no murmurs no bruits Abdomen: Soft, nontender, good bowel tones, no flank pain Skin: Warm and dry, no rashes Neurologic: Grossly neurologically intact with no obvious asymmetries or abnormalities Extremities: No trauma, well perfused Psych: Cooperative, appropriate insight and affect Course Orders Ordered: ED Orders 05/29/23 18:20 Respiratory Panel (Film Array) Stat Strep Grp A by PCR Rapid Stat 05/29/23 18:21 Throat Culture Stat Vital Signs Vital signs: Vital Signs - 8 hr 05/29/23 18:08 Temperature 97.8 F Pulse Rate 81 Respiratory Rate 20 Blood Pressure 125/58 L Pulse Oximetry 99 Oxygen Delivery Method Room Air Medical Decision Making Lab Data Labs: Lab Results 05/29/23 Range/Units 18:20 Chlamy pneumoniae PCR Not detected (Not Detect) Adenovirus (PCR) Not detected (Not Detect) B.parapertussis DNA PCR Not detected (Not Detecte) Coronavirus OC43 (PCR) Not detected (Not Detect) Coronavirus HKU1 (PCR) Not detected (Not Detect) Coronavirus 229E (PCR) Not detected (Not Detect) SARS-CoV-2 (PCR) Not detected (Not Detecte) Coronavirus NL63 (PCR) Not detected (Not Detect) Human Metapneumovir PCR Not detected (Not Detect) Influenza Type A (PCR) Not detected (Not Detect) Influenza Type B (PCR) Not detected (Not Detect) M. pneumoniae (PCR) Not detected (Not Detect) Parainfluenza 1 (PCR) Not detected (Not Detect) Parainfluenza 2 (PCR) Not detected (Not Detect) Parainfluenza 3 (PCR) Not detected (Not Detect) Parainfluenza 4 (PCR) Not detected (Not Detect) RSV (PCR) Detected H (Not Detect) Entero/Rhino (PCR) Not detected (Not Detect) Group A Strep (PCR) Negative (Negative) MDM Narrative Medical decision making narrative: CC: Upper respiratory complaints Complicating co-morbidities: Hypertension Data collected from: patient Differential considered: Upper respiratory syndrome, viral pneumonia, bacterial pneumonia Exam documented above, pertinent findings include: No significant rhonchi or wheezing on lung exam, no significant Lab Test results independently reviewed as above. Pertinent findings: Respiratory distress Respiratory panel is positive for RSV. CBC shows white count minimally low at 4.4 otherwise unremarkable Chemistries show mildly low potassium at 3.1 Troponin is undetectable Imaging studies independently reviewed: No acute cardiopulmonary disease Treatments: Kristin Reina Discussion: 48-year-old woman with RSV and clinical presentation consistent with that. There is no evidence of severe respiratory distress, bacterial pneumonia. Potassium was slightly low and she was given a potassium supplement prior to discharge. Renal function is otherwise unremarkable and she has not on medications that should be causing hypokalemia. We will refer any additional follow up to her primary care provider. Diagnosis, anticipated recovery and symptomatic treatment are all reviewed. Questions are answered and she is safe for discharge Discharge Plan Departure Patient Disposition: Home Clinical Impression: Respiratory syncytial virus (RSV) infection Instructions: DI for Respiratory Syncytial Virus -- Adults Activity Restrictions/Additional Instructions: Thank you for coming in today You have respiratory syncytial virus. Your symptoms started on 05/27 and you will likely continue to be infectious through at least 06/01. Home isolation is suggested For symptomatic relief, Kristin Reina can help suppress the cough. [id number] cough medication such as Robitussin DM or generic equivalent, Mucinex DM or generic equivalent along with plenty of fluids, Tylenol and ibuprofen for body aches can all be helpful. Rest is going to be important. If you find that you are getting worse or develop any new symptoms, please feel free to return to the emergency department for further evaluation. Prescriptions: No Action atenolol 25 mg tablet 25 mg PO DAILY Qty: 30 0RF ondansetron 4 mg tablet,disintegrating 4 mg PO TID-QID PRN (Reason: nausea and vomiting) Qty: 10 0RF benzonatate 200 mg capsule 200 mg PO BID PRN (Reason: cough) Qty: 20 0RF Referrals: Miscellaneous,Doctor, MD [Primary Care Provider] - Stand Alone Forms: Patient Portal/API
[2023-05-29] MEDS: BENZONATATE 100 MG CAPSULE PO (20:29)
[2023-05-29 20:30] VITALS: BP 126/56; PULSE 70; O2SAT 100
== END 2023-05-29 20:37 | disposition home or self-care (01) ==
PROVIDERS: Emergency Medicine; Emergency Provider Emergency Medicine
DX: B33.8 Other specified viral diseases (principal); E87.6 Hypokalemia; Z20.822 Contact with and (suspected) exposure to COVID-19
CPT/HCPCS: 87070; 87633; 87651; 99283

== ENCOUNTER 2023-08-23 17:11 | Emergency (ER) | payer OTHER, SELFPAY ==
[2023-08-23] VITALS (11 sets, daily range): BP systolic 119–176; BP diastolic 56–108; PULSE 64–85; RESP 14–18; TEMP 36.4; O2SAT 96–100; BMI 29.9
--- NOTE | 2023-08-23 17:29 | DI.CT.S_ITS ---
PROCEDURE: CT ABDOMEN PELVIS W CON INDICATIONS: bilateral lower abd pain TECHNIQUE: After the administration of intravenous contrast, axial sections acquired from the lung bases to the pubic symphysis. Coronal and sagittal reformats were performed. For radiation dose reduction, the following was used: automated exposure control, adjustment of mA and/or kV according to patient size. COMPARISON: None. FINDINGS: Image quality: Diagnostic Lower chest: Mild lower lung opacities, likely atelectasis. Atrial septal device Mildly patulous distal esophagus, possible small epiphrenic diverticulum, nonspecific CT appearance. Liver: Unremarkable Gallbladder and biliary system: Unremarkable, nondilated Pancreas: No ductal dilation Spleen: Nonenlarged Adrenals: No adrenal nodule Kidneys: No solid mass. No hydronephrosis. Vessels and lymph nodes: The main portal vein is patent. No abdominal aortic aneurysm. No pathologic lymph nodes by size criteria Bowel and peritoneum: Mildly distended stomach. No evidence of small bowel obstruction. Prominent fluid-filled loops of distal small bowel. The colon is under distended. The appendix is nondilated, terminating in the midline lower abdomen. Body wall: Unremarkable Pelvis: Complex appearance of the uterus, likely multiple fibroids and degenerating cystic components. Possible cyst in the right adnexa. The left ovary is not visualized. Bladder is unremarkable. Bones: No acute or suspicious osseous finding. There are degenerative changes. IMPRESSION: No evidence of small bowel obstruction. Mildly prominent fluid-filled loops of distal small bowel may represent enteritis. The appendix is nondilated. The stomach is mildly dilated. Complex appearance of the uterus, likely representing multiple fibroids, some which have cystic and degenerating components. Prominent right ovary, likely with cysts. Consider further ultrasound follow-up. MRI may be eventually necessary to fully characterize. Dictated by: Gilles Child M.D. on 08/23/2023 at 18:58 Approved by: Gilles Child M.D. on 08/23/2023 at 19:03
--- NOTE | 2023-08-23 17:30 | ED.GENADULT ---
HPI - General Adult <Sergio Hinds DO - Last Filed: 08/24/23 06:58> General Chief complaint: Abdominal Pain Stated complaint: Abd pain Time Seen by Provider: 08/23/23 17:24 Source: patient Mode of arrival: Ambulatory History of Present Illness HPI narrative: Patient is a 48-year-old female who is here for evaluation bilateral lower abdominal discomfort. States that it started this morning at about 0800 hours. It is now been consistent in his more in the suprapubic and left-sided lower abdominal. No change in bowel habits. No vaginal bleeding. She is still having regular menstrual cycles. No urinary symptoms. She has had her left ovary removed because of ovarian cysts. Is having some nausea. No fevers. She had similar symptoms a couple weeks ago that resolved on its own. Related Data Previous Rx's Medication Instructions Recorded atenolol 25 mg tablet 25 mg PO DAILY #30 tabs 08/27/20 benzonatate 200 mg capsule 200 mg PO BID PRN cough #20 caps 08/25/22 ondansetron 4 mg disintegrating 4 mg PO TID-QID PRN nausea and 08/25/22 tablet vomiting #10 tabs Allergies Allergy/AdvReac Type Severity Reaction Status Date / Time No Known Drug Allergies Allergy Verified 08/23/23 17:19 Review of Systems <DO Hanna Thayer Last Filed: 08/24/23 06:58> Review of Systems Narrative: See HPI Patient History <DO Hanna Thayer Last Filed: 08/24/23 06:58> Medical History Hypertension Surgical History H/O atrial septal defect repair Social History lives independently: Yes Smoking Status: Never smoker Smoking Status: Never smoker alcohol intake frequency: holidays/special occasions only Substance Use Type: does not use Exam <DO Hanna Thayer Last Filed: 08/24/23 06:58> Initial Vital Signs Initial Vital Signs: Vital Signs Temperature 97.6 F 08/23/23 17:13 Pulse Rate 82 08/23/23 17:13 Respiratory Rate 18 08/23/23 17:13 Blood Pressure 176/108 H 08/23/23 17:13 Pulse Oximetry 98 08/23/23 17:13 Oxygen Delivery Method Room Air 08/23/23 17:13 Const General: cooperative and comfortable Resp Effort & Inspection: normal respiratory effort Auscultation: clear to auscultation bilaterally Cardio Rate: regular rate Rhythm: regular rhythm GI Inspection: normal to inspection and non-distended Palpation: soft, No firm, No guarding and tender Back/Spine/Pelvis Back: No CVA tenderness Skin General: no rashes or lesions noted Neuro General: patient alert, patient awake and moves all extremities Extrem General: capillary refill normal <Tian Rivera MD - Last Filed: 08/25/23 12:40> Initial Vital Signs Initial Vital Signs: Vital Signs Temperature 97.6 F 08/23/23 17:13 Pulse Rate 82 08/23/23 17:13 Respiratory Rate 18 08/23/23 17:13 Blood Pressure 176/108 H 08/23/23 17:13 Pulse Oximetry 98 08/23/23 17:13 Oxygen Delivery Method Room Air 08/23/23 17:13 Course <Sergio Hinds DO - Last Filed: 08/24/23 06:58> Orders Ordered: Discontinued Medications Ketorolac Tromethamine (Ketorolac 30 Mg/Ml Vial) 15 mg IV NOW ONE Stop: 08/23/23 18:43 Last Admin: 08/23/23 18:45 Dose: 15 mg Documented By: KATIE Vital Signs Vital signs: Vital Signs - 8 hr 08/23/23 17:13 08/23/23 17:22 08/23/23 17:22 Temperature 97.6 F Pulse Rate 82 64 Respiratory Rate 18 Blood Pressure 176/108 H 131/68 Pulse Oximetry 98 99 Oxygen Delivery Method Room Air 08/23/23 17:30 08/23/23 17:46 08/23/23 17:46 Temperature Pulse Rate 85 81 Respiratory Rate Blood Pressure 132/56 L Pulse Oximetry 99 96 Oxygen Delivery Method 08/23/23 18:00 08/23/23 18:01 08/23/23 18:01 Temperature Pulse Rate 77 77 Respiratory Rate Blood Pressure 119/56 L Pulse Oximetry 99 98 Oxygen Delivery Method 08/23/23 18:30 08/23/23 19:00 08/23/23 19:30 Temperature Pulse Rate 79 74 79 Respiratory Rate 18 Blood Pressure Pulse Oximetry 99 100 98 Oxygen Delivery Method 08/23/23 20:12 Temperature Pulse Rate 70 Respiratory Rate Blood Pressure Pulse Oximetry 100 Oxygen Delivery Method <Tian Rivera MD - Last Filed: 08/25/23 12:40> Orders Ordered: Discontinued Medications Ketorolac Tromethamine (Ketorolac 30 Mg/Ml Vial) 15 mg IV NOW ONE Stop: 08/23/23 18:43 Last Admin: 08/23/23 18:45 Dose: 15 mg Documented By: KATIE Vital Signs Vital signs: Vital Signs - 8 hr 08/23/23 17:13 08/23/23 17:22 08/23/23 17:22 Temperature 97.6 F Pulse Rate 82 64 Respiratory Rate 18 Blood Pressure 176/108 H 131/68 Pulse Oximetry 98 99 Oxygen Delivery Method Room Air 08/23/23 17:30 08/23/23 17:46 08/23/23 17:46 Temperature Pulse Rate 85 81 Respiratory Rate Blood Pressure 132/56 L Pulse Oximetry 99 96 Oxygen Delivery Method 08/23/23 18:00 08/23/23 18:01 08/23/23 18:01 Temperature Pulse Rate 77 77 Respiratory Rate Blood Pressure 119/56 L Pulse Oximetry 99 98 Oxygen Delivery Method 08/23/23 18:30 08/23/23 19:00 08/23/23 19:30 Temperature Pulse Rate 79 74 79 Respiratory Rate 18 Blood Pressure Pulse Oximetry 99 100 98 Oxygen Delivery Method 08/23/23 20:12 Temperature Pulse Rate 70 Respiratory Rate Blood Pressure Pulse Oximetry 100 Oxygen Delivery Method Medical Decision Making <Sergio Hinds DO - Last Filed: 08/24/23 06:58> Lab Data Lab results reviewed: Yes I reviewed the patient's lab results. 08/23/23 17:26 08/23/23 17:26 Labs: Lab Results 08/23/23 Range/Units 17:26 WBC 7.6 (4.5-11.0) X10^3/uL RBC 4.11 (4.0-5.2) X10^6/uL Hgb 11.5 L (12.0-16.0) g/dL Hct 35.1 L (36-46) % MCV 85.3 (80-100) fL MCH 27.9 (26-34) PG MCHC 32.7 (30-36) % RDW 14.2 (11.6-14.8) % Plt Count 477 H (150-400) X10^3/uL Neut % (Auto) 45.8 L (50-75) % Lymph % (Auto) 40.9 H (25-40) % [place] % (Auto) 6.8 (3-14) % Eos % (Auto) 5.3 H (2-4) % Baso % (Auto) 1.2 (0-2) % Neut # (Auto) 3500 (4070-1577) /uL Lymph # (Auto) 3100 (3149-2765) /uL [place] # (Auto) 500 (0-900) /uL Eos # (Auto) 400 (0-450) /uL Baso # (Auto) 100 (0-100) /uL Sodium 138 (137-145) mmol/L Potassium 3.7 (3.4-5.1) mmol/L Chloride 104 (98-107) mmol/L Carbon Dioxide 27 (22-32) mmol/L BUN 12 (7-17) mg/dL Creatinine 1.01 (0.52-1.04) mg/dL Estimated GFR > 60 (>60) mL/min BUN/Creatinine Ratio 11.9 (6-22) Glucose 108 H (70-100) mg/dL Calcium 9.4 (8.4-10.2) mg/dL Total Bilirubin 0.3 (0.2-1.3) mg/dL AST 22 (14-36) IU/L ALT 14 (<35) IU/L Alkaline Phosphatase 115 (38-126) U/L Total Protein 8.8 H (6.3-8.2) g/dL Albumin 4.9 (3.5-5.0) g/dL Globulin 3.9 (1.7-4.1) g/dL Albumin/Globulin Ratio 1.3 (1.0-2.8) Lipase 187 (23-300) U/L Serum , Qual Negative (Negative) Urine Dip Bedside Urine Glucose Negative Bedside Urine Bilirubin - Negative Bedside Urine Ketone - Negative Urine Specific [place] 1.010 Bedside Urine Occult Blood - Negative Bedside Urine pH 6.0 Bedside Urine Protein - Negative Bedside Urine Urobilinogen - Negative Bedside Urine Nitrite - Negative Bedside Urine Leukocytes - Negative Esterase Point of care testing: Urine Dip Bedside Urine Glucose Negative Bedside Urine Bilirubin - Negative Bedside Urine Ketone - Negative Urine Specific [place] 1.010 Bedside Urine Occult Blood - Negative Bedside Urine pH 6.0 Bedside Urine Protein - Negative Bedside Urine Urobilinogen - Negative Bedside Urine Nitrite - Negative Bedside Urine Leukocytes - Negative Esterase MDM Narrative Medical decision making narrative: Patient has had several hours of lower abdominal pain. Labs were ordered. CT scan was ordered. Patient declined offer for nausea or pain medication. Care turned over to Dr. Rivera at change of shift to follow-up and disposition. <Tian Rivera MD - Last Filed: 08/25/23 12:40> Lab Data Labs: Lab Results 08/23/23 Range/Units 17:26 WBC 7.6 (4.5-11.0) X10^3/uL RBC 4.11 (4.0-5.2) X10^6/uL Hgb 11.5 L (12.0-16.0) g/dL Hct 35.1 L (36-46) % MCV 85.3 (80-100) fL MCH 27.9 (26-34) PG MCHC 32.7 (30-36) % RDW 14.2 (11.6-14.8) % Plt Count 477 H (150-400) X10^3/uL Neut % (Auto) 45.8 L (50-75) % Lymph % (Auto) 40.9 H (25-40) % [place] % (Auto) 6.8 (3-14) % Eos % (Auto) 5.3 H (2-4) % Baso % (Auto) 1.2 (0-2) % Neut # (Auto) 3500 (7300-8387) /uL Lymph # (Auto) 3100 (9975-0352) /uL [place] # (Auto) 500 (0-900) /uL Eos # (Auto) 400 (0-450) /uL Baso # (Auto) 100 (0-100) /uL Sodium 138 (137-145) mmol/L Potassium 3.7 (3.4-5.1) mmol/L Chloride 104 (98-107) mmol/L Carbon Dioxide 27 (22-32) mmol/L BUN 12 (7-17) mg/dL Creatinine 1.01 (0.52-1.04) mg/dL Estimated GFR > 60 (>60) mL/min BUN/Creatinine Ratio 11.9 (6-22) Glucose 108 H (70-100) mg/dL Calcium 9.4 (8.4-10.2) mg/dL Total Bilirubin 0.3 (0.2-1.3) mg/dL AST 22 (14-36) IU/L ALT 14 (<35) IU/L Alkaline Phosphatase 115 (38-126) U/L Total Protein 8.8 H (6.3-8.2) g/dL Albumin 4.9 (3.5-5.0) g/dL Globulin 3.9 (1.7-4.1) g/dL Albumin/Globulin Ratio 1.3 (1.0-2.8) Lipase 187 (23-300) U/L Serum , Qual Negative (Negative) Urine Dip Bedside Urine Glucose Negative Bedside Urine Bilirubin - Negative Bedside Urine Ketone - Negative Urine Specific [place] 1.010 Bedside Urine Occult Blood - Negative Bedside Urine pH 6.0 Bedside Urine Protein - Negative Bedside Urine Urobilinogen - Negative Bedside Urine Nitrite - Negative Bedside Urine Leukocytes - Negative Esterase Point of care testing: Urine Dip Bedside Urine Glucose Negative Bedside Urine Bilirubin - Negative Bedside Urine Ketone - Negative Urine Specific [place] 1.010 Bedside Urine Occult Blood - Negative Bedside Urine pH 6.0 Bedside Urine Protein - Negative Bedside Urine Urobilinogen - Negative Bedside Urine Nitrite - Negative Bedside Urine Leukocytes - Negative Esterase MDM Narrative Medical decision making narrative: Patient has had several hours of lower abdominal pain. Labs were ordered. CT scan was ordered. Patient declined offer for nausea or pain medication. Care turned over to Dr. Rivera at change of shift to follow-up and disposition. Miguel, 08/23/2023, 1814. Transfer of care. 48-year-old female with right-sided abdominal pain, then to [facility] through the day today, history of left ovarian cysts, screening labs unremarkable, serum hCG negative, CT abdomen and pelvis ordered, has been performed, results pending. On my exam patient has right lower quadrant tenderness and some left lower quadrant transabdominally. Abdomen nonrigid. Pain medications offered, declined. Await results CT abdomen, if negative could consider pelvic ultrasound imaging. Keep NPO for now. Assume care. CT abdomen and pelvis. Impressions: ?No evidence of small-bowel obstruction. Mildly prominent fluid-filled loops of distal small bowel may represent enteritis. The appendix is nondilated. The stomach is mildly dilated. Complex appearing of the uterus, likely representing multiple fibroids, some of which have cystic in September generating components. Prominent right ovary, likely with cysts. Consider further ultrasound follow up. MRI may be eventually necessary to fully characterize. ? Radiology report, Dr. Child We will obtain ultrasound pelvis for further delineation of anatomy above, possible pain related to degenerating uterine fibroids, and/or right ovarian cysts. 1999, verbal report information technology assistant. Pelvic ultrasound shows blood flow normal to right ovary that has small follicular cysts, no free fluid. There are 2 large uterine masses approximately 7 cm diameter each. Left ovary not visualized, history of oophorectomy noted. We will consult Gynecology regarding follow-up, possible degenerating fibroids as cause of discomfort 2030, case discussed with Gynecology Dr. North, can see patient in follow-up for elective hysterectomy surgical options. Patient agrees. She declines opiate pain medications, she will take naproxen [id number] which she has prior. Discharge home, follow up with Gynecology Critical Care Time <Tian Rivera MD - Last Filed: 08/25/23 12:40> Critical Care Time Critical Care Time: Yes Total Critical Care Time: 35 Attestation: The high probability of a clinically significant, sudden or life threatening deterioration of the [abdominopelvic, gynecologic] system(s) required my full and direct attention, intervention and personal management. The aggregate critical care time was [35] minutes. This time is in addition to time spent performing reported procedures but includes the following: [x] Data Review and interpretation [x] Patient assessment and monitoring of vital signs [x] Documentation [x] Medication orders and management Discharge Plan Departure Patient Disposition: Home Clinical Impression: Pelvic pain Fibroid, uterine Qualifiers: Uterine leiomyoma location: unspecified location Qualified Code(s): D25.9 - Leiomyoma of uterus, unspecified Activity Restrictions/Additional Instructions: Lower abdominal discomfort, history of remote left ovarian surgical removal due to cysts. Some discomfort right lower and midline and left lower abdominal quadrant on exam. No fever, unremarkable laboratory studies, test negative. CT scan abdomen and pelvis suspicious for some masses within the uterus, possible uterine fibroids, advising further anatomic evaluation with ultrasound. Pelvic ultrasound was also performed, showed 7 cm diameter uterine masses, suspicious for uterine fibroids. There were small follicular cysts on the right ovary, without fluid, no suggestion of recent rupture or involution. Good blood flow to the right ovary. Case discussed gynecology on-call Dr. North, she can see you in follow-up to discuss hysterectomy surgical options for this. Take naproxen as needed for discomfort. Your information was relayed by phone to Dr. North, contact their office if you have not been contacted next couple of days. Return earlier for this/nearest emergency department for any change worsening symptoms prior Prescriptions: No Action atenolol 25 mg tablet 25 mg PO DAILY Qty: 30 0RF ondansetron 4 mg tablet,disintegrating 4 mg PO TID-QID PRN (Reason: nausea and vomiting) Qty: 10 0RF benzonatate 200 mg capsule 200 mg PO BID PRN (Reason: cough) Qty: 20 0RF Referrals: Miscellaneous,Doctor, MD [Primary Care Provider] - Esthela North DO [Physician] - Stand Alone Forms: Patient Portal/API
[2023-08-23 17:34] LABS: Add Manual Diff / Slide Review NO; Basophils Absolute Auto 100 /uL (0-100); Basophils Percent Auto 1.2 % (0-2); Eosinophils Absolute Auto 400 /uL (0-450); Eosinophils Percent Auto 5.3 % (2-4); Hematocrit 35.1 % (36-46); Hemoglobin 11.5 g/dL (12.0-16.0); Lymphocytes Absolute Auto 3100 /uL (1100-4500); Lymphocytes Percent Auto 40.9 % (25-40); Mean Corpuscular HGB Conc 32.7 % (30-36); Mean Corpuscular Hemoglobin 27.9 PG (26-34); Mean Corpuscular Volume 85.3 fL (80-100); Monocytes Absolute Auto 500 /uL (0-900); Monocytes Percent Auto 6.8 % (3-14); Neutrophils Absolute Auto 3500 /uL (1500-7000); Neutrophils Percent Auto 45.8 % (50-75); Platelet Count 477 X10^3/uL (150-400); Red Blood Cell Count 4.11 X10^6/uL (4.0-5.2); Red Cell Distribution Width 14.2 % (11.6-14.8); White Blood Cell Count 7.6 X10^3/uL (4.5-11.0)
[2023-08-23 17:45] LABS: Alanine Aminotransferase 14 IU/L (<35); Albumin 4.9 g/dL (3.5-5.0); Albumin Globulin Ratio 1.3 (1.0-2.8); Alkaline Phosphatase 115 U/L (38-126); Aspartate Aminotransferase 22 IU/L (14-36); BUN Creatinine Ratio 11.9 (6-22); Bilirubin Total 0.3 mg/dL (0.2-1.3); Blood Urea Nitrogen 12 mg/dL (7-17); Calcium 9.4 mg/dL (8.4-10.2); Carbon Dioxide 27 mmol/L (22-32); Chloride 104 mmol/L (98-107); Estimated Glomerular Filt Rate > 60 mL/min (>60); Globulin 3.9 g/dL (1.7-4.1); Glucose 108 mg/dL (70-100); HEMOLYSIS < 15 (0-50); Lipase 187 U/L (23-300); Potassium 3.7 mmol/L (3.4-5.1); Sodium 138 mmol/L (137-145); Total Protein 8.8 g/dL (6.3-8.2)
[2023-08-23 18:05] LABS: Pregnancy Test Serum,Qual Negative (Negative)
[2023-08-23] MEDS: KETOROLAC 30 MG/ML VIAL 15 MG IV (18:45)
--- NOTE | 2023-08-23 19:26 | DI.US.S_ITS ---
PROCEDURE: US PELVIC COMPLETE INDICATIONS: PAIN TECHNIQUE: Real-time scanning was performed of the pelvic organs, with image documentation. Additional endovaginal scanning was necessary due to incomplete visualization of the adnexal and endometrial structures by transabdominal scanning. COMPARISON: [facility], CT, CT ABDOMEN PELVIS W CON, 08/23/2023, 18:09. FINDINGS: Uterus: Uterus is retroflexed and normal in size at 12.2 x 10.4 x 8.4 cm. The myometrium is heterogeneous. The endometrium is not well seen due to multiple fibroids. The endometrium on CT appears thin. Multiple uterine fibroids. For example: -Mid intramural fibroid measuring 7.1 x 6.7 x 5.5 cm. -Mid intramural fibroid measuring 7.1 x 5.8 x 5.7 cm Uterine contours are difficult to discern. (A 3rd fibroid is seen on CT anterior exophytic measuring approximately 8 cm). Ovaries: The right ovary measures 4 x 2.6 x 1.5 cm, with a calculated ovarian volume of 8 cc. The left ovary is surgically absent. Small right ovarian follicles. Largest measuring 1.3 cm. Other: No pathologic free abdominal or pelvic fluid. IMPRESSION: 1. No significant right ovarian cyst. The left ovary is surgically absent. 2. Endometrium is not well seen. 3. Multiple large uterine fibroids. We strive to produce accurate, complete, and clear reports of imaging services. To assist us in improving patient care, this report was composed using standard report templates and voice recognition software. Therefore, it may contain abnormal punctuation, insertions and/or omissions. Occasional wrong-word or sound-alike substitutions may occur. Though we review the report and make efforts to correct it, we do recommend that the report be read carefully in proper context to recognize any text inaccuracies. Dictated by: Kevin Bearden M.D. on 08/23/2023 at 20:34 Approved by: Kevin Bearden M.D. on 08/23/2023 at 20:40
== END 2023-08-23 21:04 | disposition home or self-care (01) ==
PROVIDERS: Emergency Medicine; Emergency Provider Emergency Medicine
DX: R10.2 Pelvic and perineal pain (principal); D25.9 Leiomyoma of uterus, unspecified; R11.0 Nausea
CPT/HCPCS: 36415; 74177; 76830; 76856; 80053; 81003; 83690; 84703; 85025; 93976; 96374; 99284; J1885; Q9967

== ENCOUNTER 2023-12-16 16:36 | Emergency (ER) | payer OTHER, SELFPAY ==
[2023-12-16] VITALS (20 sets, daily range): BP systolic 127–156; BP diastolic 60–82; PULSE 60–75; RESP 12–24; TEMP 36.6; O2SAT 98–100; BMI 28.5
[2023-12-16 17:11] LABS: Add Manual Diff / Slide Review NO; Basophils Absolute Auto 100 /uL (0-100); Eosinophils Absolute Auto 200 /uL (0-450); Eosinophils Percent Auto 2.6 % (2-4); Hematocrit 29.7 % (36-46); Hemoglobin 9.7 g/dL (12.0-16.0); Lymphocytes Absolute Auto 1700 /uL (1100-4500); Lymphocytes Percent Auto 25.2 % (25-40); Mean Corpuscular HGB Conc 32.8 % (30-36); Mean Corpuscular Hemoglobin 27.1 PG (26-34); Mean Corpuscular Volume 82.5 fL (80-100); Monocytes Absolute Auto 600 /uL (0-900); Monocytes Percent Auto 9.3 % (3-14); Neutrophils Absolute Auto 4200 /uL (1500-7000); Neutrophils Percent Auto 60.9 % (50-75); Platelet Count 364 X10^3/uL (150-400); Red Cell Distribution Width 15.6 % (11.6-14.8); White Blood Cell Count 6.8 X10^3/uL (4.5-11.0)
[2023-12-16 17:24] LABS: Alanine Aminotransferase 12 IU/L (<35); Albumin Globulin Ratio 1.1 (1.0-2.8); Alkaline Phosphatase 79 U/L (38-126); Aspartate Aminotransferase 24 IU/L (14-36); BUN Creatinine Ratio 7.2 (6-22); Bilirubin Total 0.5 mg/dL (0.2-1.3); Blood Urea Nitrogen 12 mg/dL (7-17); Calcium 8.4 mg/dL (8.4-10.2); Carbon Dioxide 27 mmol/L (22-32); Chloride 103 mmol/L (98-107); Estimated Glomerular Filt Rate 38 mL/min (>60); Globulin 3.6 g/dL (1.7-4.1); Glucose 95 mg/dL (70-100); HEMOLYSIS < 15 (0-50); Lipase 75 U/L (23-300); Sodium 137 mmol/L (137-145); Total Protein 7.6 g/dL (6.3-8.2)
--- NOTE | 2023-12-16 18:24 | DI.CT.S_ITS ---
PROCEDURE: CT ABDOMEN PELVIS WO CON INDICATIONS: LLQ/LOW BACK PAIN TECHNIQUE: Axial sections were acquired from the lung bases to the pubic symphysis. Coronal and sagittal reformats were performed. For radiation dose reduction, the following was used: automated exposure control, adjustment of mA and/or kV according to patient size. COMPARISON: [facility], CT, CT ABDOMEN PELVIS W CON, 08/23/2023, 18:09. FINDINGS: Image quality: Diagnostic. Peritoneum: There is no pneumoperitoneum. There is no ascites. Bones: There is no acute osseous abnormality. The visualized vertebral body height are preserved. Lower Chest: Atrial septal device in place. Hypodensity of the blood pool, which can be seen with anemia. Mild left atrial enlargement. Liver: The liver is within normal limits. Gallbladder: The gallbladder is within normal limits. Biliary Ducts: There is no intrahepatic or extrahepatic biliary ductal dilatation. Pancreas: The pancreas is within normal limits. Spleen: The spleen is within normal limits. Adrenal glands: No adrenal nodularity Kidneys: Bilateral fullness of the renal collecting systems without overt hydronephrosis, likely secondary to mass effect from the the pathology described below (please see reproductive organs section). Bladder: Decompressed. Reproductive organs: Interval enlargement of 19.0 x 9.7 x 14.5 cm uterus (8.7 x 9.1 x 17.2 centimeter on 08/23/2023) with heterogenous parenchyma (4/26; 5/51) and adjacent small volume ascites along the right paracolic gutter. Within the central portion of the uterus, re-identified is a 7.2 cm peripherally calcified lesion, likely a fibroid. Stomach: The stomach is within normal limits. Bowel: The bowel is within normal limits. There is no bowel obstruction. The appendix is within normal limits. Lymph Nodes: There is no retroperitoneal, mesenteric, or inguinal lymphadenopathy. Vascular: There is no aneurysmal dilatation of the abdominal aorta. Within the limits of a non-angiographic examination, the celiac, superior mesenteric, and inferior mesenteric arteries are opacified. There is no large filling defect within the main portal vein or superior mesenteric vein. IMPRESSION: 1. Limited examination in the absence of intravenous contrast. 2. Interval enlargement and degeneration of likely multifibroid 19.0 cm uterus, with mild mass effect on the renal collecting systems. Gynecological consultation recommended for further evaluation. Dictated by: Demetris Vaz M.D. on 12/16/2023 at 19:40 Approved by: Demetris Vaz M.D. on 12/16/2023 at 19:50
--- NOTE | 2023-12-16 18:26 | ED.ABDPAIN ---
HPI - Abdominal Pain <Shannan Hernández MD - Last Filed: 12/17/23 16:17> General Chief Complaint: Abdominal Pain Stated Complaint: abd pain, n/v Time Seen by Provider: 12/16/23 17:59 Source: patient Mode of arrival: Ambulatory History of Present Illness HPI narrative: 48-year-old female with history of fibroid uterus presents by private vehicle from home for 3 days of progressively worsening left-sided abdominal pain with nausea and vomiting. [id number] medications at home not improving pain. States that this is different from her usual fibroid pain. Denies unusual vaginal bleeding or discharge, denies complaints with urination, denies change in bowel habits. Related Data Home Medications Medication Instructions Recorded Confirmed naproxen 500 mg tablet 500 mg PO BID 09/08/23 09/08/23 triamterene 75 1 tab PO DAILY 09/08/23 12/16/23 mg-hydrochlorothiazide 50 mg tablet Allergies Allergy/AdvReac Type Severity Reaction Status Date / Time No Known Drug Allergies Allergy Verified 12/16/23 16:50 Patient History <Shannan Hernández MD - Last Filed: 12/17/23 16:17> Medical History Hearing decreased Vertigo (~2014) Tinnitus (~2014) Painful menstrual periods (~2022) Ovarian cyst (~2012) Heavy menstrual period (~2022) Atrial septal defect (~2018) Leiomyoma of uterus Meniere disease Graves disease (~2020) Hypertension Surgical History Anesthesia History of sinus surgery (~05/2015) History of left oophorectomy (~12/2012) H/O atrial septal defect repair (~04/2019) Family History Mother Hypertension Stroke Brother History of heart disease Hypertension Sister No problems noted. Grandmother Congestive heart failure Social History lives independently: Yes Smoking Status: Never smoker Smoking Status: Never smoker alcohol intake frequency: holidays/special occasions only Substance Use Type: does not use Exam <Shannan Hernández MD - Last Filed: 12/17/23 16:17> Initial Vital Signs Initial Vital Signs: Vital Signs Temperature 98 F 12/16/23 16:47 Pulse Rate 62 12/16/23 16:47 Respiratory Rate 16 12/16/23 16:47 Blood Pressure 142/67 H 12/16/23 16:47 Pulse Oximetry 99 12/16/23 16:47 Oxygen Delivery Method Room Air 12/16/23 16:47 Const: Awake, alert, uncomfortable, in pain, nontoxic appearing Cardiac: regular rate, regular rhythm RESP: unlabored, clear bilaterally, no wheezing GI: Soft, left lower quadrant tenderness to deep palpation without rebound or guarding MSK: Atraumatic, full range of motion, pulses equal Skin: Warm, Dry, intact, no rashes Neuro: AO x3, CN II-XII grossly intact, moves all extremities <Tian Rivera MD - Last Filed: 12/17/23 19:00> Initial Vital Signs Initial Vital Signs: Vital Signs Temperature 98 F 12/16/23 16:47 Pulse Rate 62 12/16/23 16:47 Respiratory Rate 16 12/16/23 16:47 Blood Pressure 142/67 H 12/16/23 16:47 Pulse Oximetry 99 12/16/23 16:47 Oxygen Delivery Method Room Air 12/16/23 16:47 Course <Shannan Hernández MD - Last Filed: 12/17/23 16:17> Orders Ordered: Discontinued Medications Hydromorphone HCl (Hydromorphone 1 Mg Inj) 1 mg IV NOW ONE Stop: 12/16/23 20:54 Last Admin: 12/16/23 21:05 Dose: Not Given Documented By: NIEVES Sodium Chloride (Normal Saline 0.9%) 1,000 mls @ 1,000 mls/hr IV BOLUS ONE Stop: 12/16/23 19:23 Last Infusion: 12/16/23 20:14 Dose: Infused Documented By: Admin: 12/16/23 19:07 Dose: 1,000 mls/hr Documented By: OSVALDO Morphine Sulfate (Morphine 4 Mg/Ml Inj) 4 mg IV NOW ONE Stop: 12/16/23 20:42 Last Admin: 12/16/23 20:47 Dose: 4 mg Documented By: OSVALDO Morphine Sulfate (Morphine 4 Mg/Ml Inj) 4 mg IV NOW ONE Stop: 12/16/23 23:38 Last Admin: 12/16/23 23:42 Dose: 4 mg Documented By: TIFF Morphine Sulfate (Morphine 4 Mg/Ml Inj) 4 mg IV NOW ONE Stop: 12/17/23 08:15 Last Admin: 12/17/23 08:24 Dose: 4 mg Documented By: ELI Ondansetron HCl (Ondansetron 4 Mg/2 Ml Inj) 4 mg IV NOW PRN PRN Reason: Nausea And Vomiting Last Admin: 12/16/23 23:42 Dose: 4 mg Documented By: TIFF Ondansetron HCl (Ondansetron 4 Mg Odt) 4 mg PO NOW PRN PRN Reason: Nausea And Vomiting Potassium Chloride (Potassium Chloride 20 Meq/15 Ml Udc) 40 meq PO NOW ONE Stop: 12/17/23 07:53 Last Admin: 12/17/23 08:24 Dose: 40 meq Documented By: ELI Vital Signs Vital signs: Vital Signs - 8 hr 12/17/23 08:30 12/17/23 09:00 Pulse Rate 72 87 Respiratory Rate 28 H 33 H <Tian Rivera MD - Last Filed: 12/17/23 19:00> Orders Ordered: Discontinued Medications Hydromorphone HCl (Hydromorphone 1 Mg Inj) 1 mg IV NOW ONE Stop: 12/16/23 20:54 Last Admin: 12/16/23 21:05 Dose: Not Given Documented By: NIEVES Sodium Chloride (Normal Saline 0.9%) 1,000 mls @ 1,000 mls/hr IV BOLUS ONE Stop: 12/16/23 19:23 Last Infusion: 12/16/23 20:14 Dose: Infused Documented By: Admin: 12/16/23 19:07 Dose: 1,000 mls/hr Documented By: OSVALDO Morphine Sulfate (Morphine 4 Mg/Ml Inj) 4 mg IV NOW ONE Stop: 12/16/23 20:42 Last Admin: 12/16/23 20:47 Dose: 4 mg Documented By: OSVALDO Morphine Sulfate (Morphine 4 Mg/Ml Inj) 4 mg IV NOW ONE Stop: 12/16/23 23:38 Last Admin: 12/16/23 23:42 Dose: 4 mg Documented By: TIFF Morphine Sulfate (Morphine 4 Mg/Ml Inj) 4 mg IV NOW ONE Stop: 12/17/23 08:15 Last Admin: 12/17/23 08:24 Dose: 4 mg Documented By: ELI Ondansetron HCl (Ondansetron 4 Mg/2 Ml Inj) 4 mg IV NOW PRN PRN Reason: Nausea And Vomiting Last Admin: 12/16/23 23:42 Dose: 4 mg Documented By: TIFF Ondansetron HCl (Ondansetron 4 Mg Odt) 4 mg PO NOW PRN PRN Reason: Nausea And Vomiting Potassium Chloride (Potassium Chloride 20 Meq/15 Ml Udc) 40 meq PO NOW ONE Stop: 12/17/23 07:53 Last Admin: 12/17/23 08:24 Dose: 40 meq Documented By: ELI Vital Signs Vital signs: Vital Signs - 8 hr 12/17/23 08:30 12/17/23 09:00 Pulse Rate 72 87 Respiratory Rate 28 H 33 H MDM - Abdominal Pain <Shannan Hernández MD - Last Filed: 12/17/23 16:17> Differential Diagnosis Differential diagnosis: Likely abdominal pain, calculus of kidney and diverticulitis Lab Data 12/16/23 17:00 12/16/23 17:00 Labs: Lab Results 12/16/23 Range/Units 17:00 WBC 6.8 (4.5-11.0) X10^3/uL RBC 3.60 L (4.0-5.2) X10^6/uL Hgb 9.7 L (12.0-16.0) g/dL Hct 29.7 L (36-46) % MCV 82.5 (80-100) fL MCH 27.1 (26-34) PG MCHC 32.8 (30-36) % RDW 15.6 H (11.6-14.8) % Plt Count 364 (150-400) X10^3/uL Neut % (Auto) 60.9 (50-75) % Lymph % (Auto) 25.2 (25-40) % [place] % (Auto) 9.3 (3-14) % Eos % (Auto) 2.6 (2-4) % Baso % (Auto) 2.0 (0-2) % Neut # (Auto) 4200 (0874-4121) /uL Lymph # (Auto) 1700 (1863-8608) /uL [place] # (Auto) 600 (0-900) /uL Eos # (Auto) 200 (0-450) /uL Baso # (Auto) 100 (0-100) /uL Sodium 137 (137-145) mmol/L Potassium 3.0 L (3.4-5.1) mmol/L Chloride 103 (98-107) mmol/L Carbon Dioxide 27 (22-32) mmol/L BUN 12 (7-17) mg/dL Creatinine 1.66 H (0.52-1.04) mg/dL Estimated GFR 38 L (>60) mL/min BUN/Creatinine Ratio 7.2 (6-22) Glucose 95 (70-100) mg/dL Calcium 8.4 (8.4-10.2) mg/dL Total Bilirubin 0.5 (0.2-1.3) mg/dL AST 24 (14-36) IU/L ALT 12 (<35) IU/L Alkaline Phosphatase 79 (38-126) U/L Total Protein 7.6 (6.3-8.2) g/dL Albumin 4.0 (3.5-5.0) g/dL Globulin 3.6 (1.7-4.1) g/dL Albumin/Globulin Ratio 1.1 (1.0-2.8) Lipase 75 (23-300) U/L Point of care testing: Point of Care Testing Test Results Negative Urine Dip Bedside Urine Glucose Negative Bedside Urine Bilirubin - Negative Bedside Urine Ketone - Negative Urine Specific [place] 1.015 Bedside Urine Occult Blood - Negative Bedside Urine pH 6.0 Bedside Urine Protein - Negative Bedside Urine Urobilinogen - Negative Bedside Urine Nitrite - Negative Bedside Urine Leukocytes - Negative Esterase Imaging Data CT scan - abdomen/pelvis: Radiologist's Impression: PROCEDURE: CT ABDOMEN PELVIS WO CON INDICATIONS: LLQ/LOW BACK PAIN TECHNIQUE: Axial sections were acquired from the lung bases to the pubic symphysis. Coronal and sagittal reformats were performed. For radiation dose reduction, the following was used: automated exposure control, adjustment of mA and/or kV according to patient size. COMPARISON: [facility], CT, CT ABDOMEN PELVIS W CON, 08/23/2023, 18:09. FINDINGS: Image quality: Diagnostic. Peritoneum: There is no pneumoperitoneum. There is no ascites. Bones: There is no acute osseous abnormality. The visualized vertebral body height are preserved. Lower Chest: Atrial septal device in place. Hypodensity of the blood pool, which can be seen with anemia. Mild left atrial enlargement. Liver: The liver is within normal limits. Gallbladder: The gallbladder is within normal limits. Biliary Ducts: There is no intrahepatic or extrahepatic biliary ductal dilatation. Pancreas: The pancreas is within normal limits. Spleen: The spleen is within normal limits. Adrenal glands: No adrenal nodularity Kidneys: Bilateral fullness of the renal collecting systems without overt hydronephrosis, likely secondary to mass effect from the the pathology described below (please see reproductive organs section). Bladder: Decompressed. Reproductive organs: Interval enlargement of 19.0 x 9.7 x 14.5 cm uterus (8.7 x 9.1 x 17.2 centimeter on 08/23/2023) with heterogenous parenchyma (/; ) and adjacent small volume ascites along the right paracolic gutter. Within the central portion of the uterus, re-identified is a 7.2 cm peripherally calcified lesion, likely a fibroid. Stomach: The stomach is within normal limits. Bowel: The bowel is within normal limits. There is no bowel obstruction. The appendix is within normal limits. Lymph Nodes: There is no retroperitoneal, mesenteric, or inguinal lymphadenopathy. Vascular: There is no aneurysmal dilatation of the abdominal aorta. Within the limits of a non-angiographic examination, the celiac, superior mesenteric, and inferior mesenteric arteries are opacified. There is no large filling defect within the main portal vein or superior mesenteric vein. IMPRESSION: 1. Limited examination in the absence of intravenous contrast. 2. Interval enlargement and degeneration of likely multifibroid 19.0 cm uterus, with mild mass effect on the renal collecting systems. Gynecological consultation recommended for further evaluation. Dictated by: Demetris Vaz M.D. on 12/16/2023 at 19:40 Approved by: Demetris Vaz M.D. on 12/16/2023 at 19:50 MDM Narrative Medical decision making narrative: Left-sided abdominal pain with nausea and vomiting. Abdomen soft, no peritoneal signs, but patient was markedly tender in the left quadrant. Medications ordered for pain, we will order laboratory work and CT imaging. Laboratory work shows new RAHEL. Creatinine in August was 1.01 with GFR greater than 60, creatinine today 1.66 with GFR 38. WBC count 6.8, hemoglobin 9.7, platelets 364, normal electrolytes. CT of the abdomen and pelvis without contrast shows significant change in size of uterus with new compression on renal collecting systems. This is likely the source of new RAHEL. Case discussed with Dr. Haynes of OBGYN, who personally evaluated the patient and images. Recommended transfer to tertiary center with OBGYN/oncology services due to concern for underlying malignancy. 0700 - Care of patient signed out to Dr. Rivera at this time. Still pending available bed. 12/17/2023, 7:00 a.m., Miguel. Sign-out from Dr. Hernández. Awaiting transfer to [facility] for Gyne Onc and Urology follow up care. 48-year-old female with history of known fibroids, increasing left-sided abdominal pain, nausea and vomiting, CT today showed uterine mass that was increased significantly in size since imaging study August this year, case discussed with Dr. Patterson OB Gynecology who recommended transfer, RAHEL, decreased GFR, some mass effect in the left ureter noted as well, we will need Gyne Onc and neurology consultations. Patient has been accepted at [facility], awaiting bed assignment. Assumed interim care. Potassium 3.0 serum noted, no repletion orders located, we will give p.o. potassium chloride 40 mEq for now. Awaiting transfer 804, bed assigned now at [facility], we will arrange ground transportation BLS ambulance <Tian Rivera MD - Last Filed: 12/17/23 19:00> Lab Data Attestation: I reviewed the patient's lab results. Labs: Lab Results 12/16/23 Range/Units 17:00 WBC 6.8 (4.5-11.0) X10^3/uL RBC 3.60 L (4.0-5.2) X10^6/uL Hgb 9.7 L (12.0-16.0) g/dL Hct 29.7 L (36-46) % MCV 82.5 (80-100) fL MCH 27.1 (26-34) PG MCHC 32.8 (30-36) % RDW 15.6 H (11.6-14.8) % Plt Count 364 (150-400) X10^3/uL Neut % (Auto) 60.9 (50-75) % Lymph % (Auto) 25.2 (25-40) % [place] % (Auto) 9.3 (3-14) % Eos % (Auto) 2.6 (2-4) % Baso % (Auto) 2.0 (0-2) % Neut # (Auto) 4200 (0109-3082) /uL Lymph # (Auto) 1700 (7247-5895) /uL [place] # (Auto) 600 (0-900) /uL Eos # (Auto) 200 (0-450) /uL Baso # (Auto) 100 (0-100) /uL Sodium 137 (137-145) mmol/L Potassium 3.0 L (3.4-5.1) mmol/L Chloride 103 (98-107) mmol/L Carbon Dioxide 27 (22-32) mmol/L BUN 12 (7-17) mg/dL Creatinine 1.66 H (0.52-1.04) mg/dL Estimated GFR 38 L (>60) mL/min BUN/Creatinine Ratio 7.2 (6-22) Glucose 95 (70-100) mg/dL Calcium 8.4 (8.4-10.2) mg/dL Total Bilirubin 0.5 (0.2-1.3) mg/dL AST 24 (14-36) IU/L ALT 12 (<35) IU/L Alkaline Phosphatase 79 (38-126) U/L Total Protein 7.6 (6.3-8.2) g/dL Albumin 4.0 (3.5-5.0) g/dL Globulin 3.6 (1.7-4.1) g/dL Albumin/Globulin Ratio 1.1 (1.0-2.8) Lipase 75 (23-300) U/L Point of care testing: Point of Care Testing Test Results Negative Urine Dip Bedside Urine Glucose Negative Bedside Urine Bilirubin - Negative Bedside Urine Ketone - Negative Urine Specific [place] 1.015 Bedside Urine Occult Blood - Negative Bedside Urine pH 6.0 Bedside Urine Protein - Negative Bedside Urine Urobilinogen - Negative Bedside Urine Nitrite - Negative Bedside Urine Leukocytes - Negative Esterase MDM Narrative Medical decision making narrative: Left-sided abdominal pain with nausea and vomiting. Abdomen soft, no peritoneal signs, but patient was markedly tender in the left quadrant. Medications ordered for pain, we will order laboratory work and CT imaging. Laboratory work shows new RAHEL. Creatinine in August was 1.01 with GFR greater than 60, creatinine today 1.66 with GFR 38. WBC count 6.8, hemoglobin 9.7, platelets 364, normal electrolytes. CT of the abdomen and pelvis without contrast shows significant change in size of uterus with new compression on renal collecting systems. This is likely the source of new RAHEL. Case discussed with Dr. Haynes of OBGYN, who personally evaluated the patient and images. Recommended transfer to tertiary center with OBGYN/oncology services due to concern for underlying malignancy. 12/17/2023, 7:00 a.m.Miguel. Sign-out from Dr. Hernández. Awaiting transfer to [facility] for Gyne Onc and Urology follow up care. 48-year-old female with history of known fibroids, increasing left-sided abdominal pain, nausea and vomiting, CT today showed uterine mass that was increased significantly in size since imaging study August this year, case discussed with Dr. Patterson OB Gynecology who recommended transfer, RAHEL, decreased GFR, some mass effect in the left ureter noted as well, we will need Gyne Onc and neurology consultations. Patient has been accepted at [facility], awaiting bed assignment. Assumed interim care. Potassium 3.0 serum noted, no repletion orders located, we will give p.o. potassium chloride 40 mEq for now. Awaiting transfer 804, bed assigned now at [facility], we will arrange ground transportation BLS ambulance Critical Care Time <Tian Rivera MD - Last Filed: 12/17/23 19:00> Critical Care Time Critical Care Time: Yes Total Critical Care Time: 35 Attestation: The high probability of a clinically significant, sudden or life threatening deterioration of the [abdominopelvic, genitourinary, gynecologic] system(s) required my full and direct attention, intervention and personal management. The aggregate critical care time was [35] minutes. This time is in addition to time spent performing reported procedures but includes the following: [x] Data Review and interpretation [x] Patient assessment and monitoring of vital signs [x] Documentation [x] Medication orders and management Discharge Plan Departure Patient Disposition: [facility] Clinical Impression: Mass of uterus, RAHEL (acute kidney injury), Hypokalemia Prescriptions: No Action triamterene-hydrochlorothiazid 75-50 mg tablet 1 tab PO DAILY naproxen 500 mg tablet 500 mg PO BID Referrals: Matt Simmons MD [Primary Care Provider] -
[2023-12-16] MEDS: SODIUM CHLORIDE 0.9% 1,000 ML 1000 ML IV (19:07)
[2023-12-16] MEDS: MORPHINE 4 MG/ML INJ IV ×2 (20:47→23:42)
--- NOTE | 2023-12-16 21:22 | PM.CN ---
History of Present Illness Consult details Date Patient Seen: 12/16/23 Time Patient Seen: 21:00 Chief complaint: abd pain, n/v Reason for consult: symptomatic rapid growth of known fibroid uterus, RAHEL due to same Requesting provider: Shannan Hernández Narrative: 48yo G0 female presents to ED for further evaluation of 3d h/o progressive acute lower abdominal and pelvic pain with associated n/v and constipation. Pt has known fibroid uterus first documented August [address] abd/pelvis after pt presented to ED with similar but less severe complaints. CT abd/pelvis today resulted significant for unanticipated rapid growth of the uterus to almost 3x the previous documented size with acute compressive effect on the renal collection system resulting in RAHEL. [facility] consulted secondary to concerns for need for operative intervention and pain management. On my arrival to room patient is resting in bed, uncomfortable appearing but NAD. States that she saw Dr. North in [facility] for ED follow-up in August but then did not follow through on recommendations/precautions as she was scared that she would need a hysterectomy. Patient states that her cycles have remained regular without change in menstrual pattern or volume. She states her most recent cycle just ended last week and lasted for 5 days. She notes that her thyroid medication was recently discontinued and her bleeding became significantly less after this. She states that for the past 3 days she has been experiencing increasingly severe lower abdominal and pelvic pain that radiates into her lower back. She denies difficulty with urination however notes that she has been unable to have a normal bowel movement for the last 2 days despite a constant sensation of needing to defecate. Pt additionally notes that she has been unable to keep down any significant food or liquids for the past 2d as she is experiencing pain and nausea/emesis with any attempts at PO intake. Patient denies recent fevers, chills/nightsweats or change in weight. She denies any significant contributory family history. She states that she had an L oophorectomy in 2012 ([facility]) due to symptomatic cysts and believes she may have had a remote abnormal pap in the past but none recently. Pt denies any history of cardiac disease, HTN, diabetes or asthma. It is noted that per history she is on dual antihypertensive therapy and also has a h/o prior atrial septal defect repair in 2019. Meds Home Medications and Allergies Home Medications Medication Instructions Recorded Confirmed Type naproxen 500 mg tablet 500 mg PO BID 09/08/23 09/08/23 History triamterene 75 1 tab PO DAILY 09/08/23 12/16/23 History mg-hydrochlorothiazide 50 mg tablet Allergies Allergy/AdvReac Type Severity Reaction Status Date / Time No Known Drug Allergies Allergy Verified 12/16/23 16:50 Review of Systems Review of Systems ROS: Yes All systems reviewed with the patient and are negative except as otherwise documented Exam Vital Signs (past 8 hours): - 12/16/23 16:47 12/16/23 17:20 12/16/23 17:23 Temperature 98 F Pulse Rate 62 69 Respiratory Rate 16 Blood Pressure 142/67 H 144/72 H Pulse Oximetry 99 100 Oxygen Delivery Method Room Air 12/16/23 17:23 12/16/23 17:30 12/16/23 17:30 Temperature Pulse Rate 61 60 Respiratory Rate 17 12 Blood Pressure 150/74 H Pulse Oximetry 99 99 Oxygen Delivery Method Room Air 12/16/23 18:00 12/16/23 18:00 12/16/23 18:30 Temperature Pulse Rate 60 60 Respiratory Rate 16 16 Blood Pressure 151/70 H Pulse Oximetry 100 100 Oxygen Delivery Method 12/16/23 19:00 12/16/23 19:07 12/16/23 19:07 Temperature Pulse Rate 70 66 Respiratory Rate 23 18 Blood Pressure 142/82 H Pulse Oximetry 100 100 Oxygen Delivery Method 12/16/23 19:30 12/16/23 19:30 12/16/23 20:00 Temperature Pulse Rate 65 61 Respiratory Rate 16 17 Blood Pressure 156/75 H Pulse Oximetry 100 100 Oxygen Delivery Method 12/16/23 20:01 12/16/23 20:01 12/16/23 20:30 Temperature Pulse Rate 61 61 Respiratory Rate 19 17 Blood Pressure 149/66 H Pulse Oximetry 100 99 Oxygen Delivery Method Oxygen Delivery Method Room Air Const General: cooperative, No acute distress, anxious and ill appearing Nutritional Appearance: obese Orientation: alert, awake and oriented x3 Limitations: mental status not altered HENMT Head: normal to inspection Chest Chest: normal inspection of the chest Resp Effort & Inspection: able to speak in complete sentences, tachypneic (shallow inspiratory effort secondary to pain) and other Cardio Pulses: normal peripheral pulses GI Inspection: normal to inspection Palpation: guarding (voluntary) and tender (diffusely tender mid-epigastric region, BLQ + RUQ, no rebound) Other: deferred per shared decision making with patient Skin General: no rashes or lesions noted Neuro General: patient alert, patient awake and patient oriented x3 Extrem General: normal to inspection Psych Mental Status: mental status grossly normal Judgment: fair (pt administered IV analgesia prior to interview ) Objective Imaging CT scan - pelvis: My impression: marked interval asymmetric enlargement of prior documented fibroid uterus concern, mild mass effect noted on renal collection system however noted RAHEL with Cr 1.66, noted limitations of contrasted study Radiologist's impression: COMPARISON: [facility], CT, CT ABDOMEN PELVIS W CON, 08/23/2023, 18:09. FINDINGS: Image quality: Diagnostic. Peritoneum: There is no pneumoperitoneum. There is no ascites. Bones: There is no acute osseous abnormality. The visualized vertebral body height are preserved. Lower Chest: Atrial septal device in place. Hypodensity of the blood pool, which can be seen with anemia. Mild left atrial enlargement. Liver: The liver is within normal limits. Gallbladder: The gallbladder is within normal limits. Biliary Ducts: There is no intrahepatic or extrahepatic biliary ductal dilatation. Pancreas: The pancreas is within normal limits. Spleen: The spleen is within normal limits. Adrenal glands: No adrenal nodularity Kidneys: Bilateral fullness of the renal collecting systems without overt hydronephrosis, likely secondary to mass effect from the the pathology described below (please see reproductive organs section). Bladder: Decompressed. Reproductive organs: Interval enlargement of 19.0 x 9.7 x 14.5 cm uterus (8.7 x 9.1 x 17.2 centimeter on 08/23/2023) with heterogenous parenchyma (4/26; 5/51) and adjacent small volume ascites along the right paracolic gutter. Within the central portion of the uterus, re-identified is a 7.2 cm peripherally calcified lesion, likely a fibroid. Stomach: The stomach is within normal limits. Bowel: The bowel is within normal limits. There is no bowel obstruction. The appendix is within normal limits. Lymph Nodes: There is no retroperitoneal, mesenteric, or inguinal lymphadenopathy. Vascular: There is no aneurysmal dilatation of the abdominal aorta. Within the limits of a non-angiographic examination, the celiac, superior mesenteric, and inferior mesenteric arteries are opacified. There is no large filling defect within the main portal vein or superior mesenteric vein. IMPRESSION: 1. Limited examination in the absence of intravenous contrast. 2. Interval enlargement and degeneration of likely multifibroid 19.0 cm uterus, with mild mass effect on the renal collecting systems. Gynecological consultation recommended for further evaluation. Labs 12/16/23 17:00 12/16/23 17:00 Labs: Laboratory Results - last 24 hr 12/16/23 17:00 WBC 6.8 RBC 3.60 L Hgb 9.7 L Hct 29.7 L MCV 82.5 MCH 27.1 MCHC 32.8 RDW 15.6 H Plt Count 364 Neut % (Auto) 60.9 Lymph % (Auto) 25.2 Blair % (Auto) 9.3 Eos % (Auto) 2.6 Baso % (Auto) 2.0 Neut # (Auto) 4200 Lymph # (Auto) 1700 Blair # (Auto) 600 Eos # (Auto) 200 Baso # (Auto) 100 Sodium 137 Potassium 3.0 L Chloride 103 Carbon Dioxide 27 BUN 12 Creatinine 1.66 H Estimated GFR 38 L BUN/Creatinine Ratio 7.2 Glucose 95 Calcium 8.4 Total Bilirubin 0.5 AST 24 ALT 12 Alkaline Phosphatase 79 Total Protein 7.6 Albumin 4.0 Globulin 3.6 Albumin/Globulin Ratio 1.1 Lipase 75 PFSH Medical History Hearing decreased Vertigo (~2014) Tinnitus (~2014) Painful menstrual periods (~2022) Ovarian cyst (~2012) Heavy menstrual period (~2022) Atrial septal defect (~2018) Leiomyoma of uterus Meniere disease Graves disease (~2020) Hypertension Surgical History Anesthesia History of sinus surgery (~05/2015) History of left oophorectomy (~12/2012) H/O atrial septal defect repair (~04/2019) Family History Mother Hypertension Stroke Brother History of heart disease Hypertension Sister No problems noted. Grandmother Congestive heart failure Social History lives independently: Yes Tobacco & Substance Use Smoking Status: Never smoker Assessment & Plan Assessment and plan (1) RAHEL (acute kidney injury): Status: Acute (2) Mass of uterus: Status: Acute Plan 48yo G0 with known fibroid uterus presents to ED with 3d progressively severe abdominal/pelvic pain, evidence of significant interval enlargement of uterus with RAHEL, inadequtae analgesia Rapid enlargement of fibroid uterus with concomitant RAHEL Images reviewed by myself as well as practice partner Dr. Polk; significant concern for underlying malignant process in setting of rapid growth in comparison to historical study. Mild distension of renal collection system noted without over hydronephrosis however pt noted to have new RAHEL on arrival Cr 1.66 DDx would include malignancy, degenerative fibroid however favor former given marked change in uterine contour/morphology in review of August 2023 images Recommendation for immediate transfer to tertiary center with [facility] oncology and frozen pathology capabilities given limitations of local facility, unable to discharge to outpatient follow-up secondary to intolerance to PO and need for IV analgesia. Patient in agreement with plan and recommendation communicated to ED consulting provider (Dr. Hernández) Thank you for this consult. Please do not hesitate to re-consult/call in hinduism of acute clinical changes Time-Based Coding :: [45] spent with patient and on the chart (including review of chart, obtaining history, exam, reviewing outside data, placing orders, documenting exam and treatment plan, and counseling patient) on [12/16/23].
[2023-12-16] MEDS: ONDANSETRON 4 MG/2 ML INJ IV (23:42)
[2023-12-17] VITALS (21 sets, daily range): BP systolic 128–138; BP diastolic 60–73; PULSE 59–89; RESP 12–33
--- NOTE | 2023-12-17 00:01 | PC.NURSE ---
Pt given food and drink with OK from Dr Hernández
[2023-12-17] MEDS: POTASSIUM CHLORIDE 20 MEQ/15 ML UDC 40 MEQ PO (08:24)
[2023-12-17] MEDS: MORPHINE 4 MG/ML INJ IV (08:24)
--- NOTE | 2023-12-17 09:24 | PC.NURSE ---
Pt set up for breakfast and pain meds given. friends visiting. pt requesting to take shower before leaving and shower set up by [employer]. Pt tolerating well.
--- NOTE | 2023-12-17 10:07 | PC.NURSE ---
call placed to shama mosquera to give report. spoke to [facility] who reports RN is busy and will call back. advised pt will be to facility in about 1 hr. call back number given.
--- NOTE | 2023-12-17 10:16 | PC.NURSE ---
Report given to TERRY [facility]
== END 2023-12-17 10:17 | disposition short-term general hospital (02) ==
PROVIDERS: Emergency Provider Emergency Medicine; PCP Student in an Organized Health Care Education/Training Program
DX: N85.8 Other specified noninflammatory disorders of uterus (principal); N17.9 Acute kidney failure, unspecified; E87.6 Hypokalemia; R11.2 Nausea with vomiting, unspecified
CPT/HCPCS: 36415; 74176; 80053; 81003; 81025; 83690; 85025; 96361; 96374; 96375; 96376; 99284; 99291; J2270; J2405